=== PATIENT | female | born 1995 | race Caucasian/White ===

== ENCOUNTER → 2023-01-02 | Outpatient (CLI) | payer BC ==
[2023-01-02 10:48] LABS: Basophils # (auto) 0 10 ^3/uL (0-0.2); Basophils % (auto) 0.5 % (0.0-2.0); Eosinophils # (auto) 0.3 10 ^3/uL (0-0.8); Eosinophils % (auto) 3.7 % (0.0-7.0); Hematocrit 40.1 % (36.0-46.0); Hemoglobin 13.7 g/dL (12.2-16.2); Lymphocytes # (auto) 1.6 10 ^3/uL (0.4-5.4); Lymphocytes % (auto) 21.4 % (10.0-50.0); Mean Corpuscular Hemoglobin 28.6 pg (28.0-32.0); Mean Corpuscular Hgb Conc. 34.1 g/dL (32.0-36.0); Monocytes # (auto) 0.6 10 ^3/uL (0-1.3); Monocytes % (auto) 7.7 % (0.0-12.0); Neutrophils % (auto) 66.7 % (37.0-80.0); Red Blood Cells 4.77 10^6/uL (4.0-5.20); Red Cell Distribution Width 12.4 % (11.8-14.3); White Blood Cell 7.4 10^3/uL (4.4-10.8)
[2023-01-02 11:12] LABS: Urine Bacteria NONE SEEN /hpf (None Seen); Urine Blood Negative /uL (Negative); Urine Clarity Clear (Clear); Urine Color Yellow (Yellow); Urine Mucus FEW (None Seen); Urine Protein, UAD Negative (Negative); Urine Specific Gravity 1.028 (1.001-1.035); Urine Urobilinogen Normal (Negative); Urine WBC 1 /hpf (0 - 5); Urine pH 6.5 (5.0-8.0)
[2023-01-02 11:48] LABS: % Iron Saturation 20.9 % (15-50)
[2023-01-02 11:49] LABS: Albumin 4.7 g/dL (3.2-4.8); Alkaline Phosphatase 65 U/L (46-116); Anion Gap 5 (5-15); Aspartate Aminotransferase < 8 U/L (13-40); BUN/Creatinine Ratio 20.6 (10.0-20.0); Bilirubin, Total 0.6 mg/dL (0.2-1.0); Blood Urea Nitrogen 13 mg/dL (9-23); Calcium 9.4 mg/dL (8.5-10.1); Carbon Dioxide 29 mmol/L (20-30); Chloride 106 mmol/L (98-107); Cholesterol 157 mg/dL (< 200); Glucose 92 mg/dL (74-106); HDL Cholesterol 56 mg/dL (40-59); LDL Cholesterol 88 mg/dL (< 100); Potassium 4.3 mmol/L (3.5-5.1); Sodium 140 mmol/L (136-145); Total Protein 7.1 g/dL (5.7-8.2); Triglycerides 116 mg/dL (< 150)
[2023-01-02 11:56] LABS: Folate (Folic Acid) 21.57 ng/mL (>5.38)
[2023-01-02 12:10] LABS: Alanine Aminotransferase < 9 U/L (7-40)
[2023-01-02 12:30] LABS: Uric Acid 3.7 mg/dL (3.1-7.8)
== END | disposition home or self-care (01) ==
LOC: LAB 10:24
PROVIDERS: ATTEND Family Medicine
DX: Z00.00 Encounter for general adult medical examination without abnormal findings (principal); Z13.89 Encounter for screening for other disorder; F41.9 Anxiety disorder, unspecified; L65.9 Nonscarring hair loss, unspecified; R00.0 Tachycardia, unspecified; R45.0 Nervousness
CPT/HCPCS: 36415; 80053; 80061; 81001; 82607; 82746; 83036; 83540; 83550; 84403; 84443; 84550; 85025

== ENCOUNTER → 2023-01-24 | Outpatient (CLI) | payer BC ==
[2023-01-24 12:18] LABS: Free T3 3.75 pg/mL (2.3-4.2); Free T4 (Free Thyroxine) 1.14 ng/dL (0.89-1.76)
[2023-01-24 12:19] LABS: T3 Total 1.45 ng/mL (0.60-1.81)
[2023-01-25 07:07] LABS: RPR Non Reactive (Non Reactive)
== END | disposition home or self-care (01) ==
LOC: LAB 10:55
PROVIDERS: ATTEND Family Medicine
DX: Z20.2 Contact with and (suspected) exposure to infections with a predominantly sexual mode of transmission (principal); N89.8 Other specified noninflammatory disorders of vagina
CPT/HCPCS: 36415; 84439; 84443; 84480; 84481; 86376; 86592; 86703

== ENCOUNTER 2023-07-30 12:48 | Inpatient (IN) | payer BC, OTHER, MEDICAID ==
[~2023-07-30] VITALS: Ht 149.9 cm; Wt 57.0 kg
[2023-07-30 13:15] LABS: Basophils # (auto) 0 10 ^3/uL (0-0.2); Basophils % (auto) 0.3 % (0.0-2.0); Eosinophils # (auto) 0.1 10 ^3/uL (0-0.8); Eosinophils % (auto) 0.6 % (0.0-7.0); Hematocrit 39.1 % (36.0-46.0); Hemoglobin 13.3 g/dL (12.2-16.2); Lymphocytes # (auto) 1.3 10 ^3/uL (0.4-5.4); Lymphocytes % (auto) 15.5 % (10.0-50.0); Mean Corpuscular Hemoglobin 28.8 pg (28.0-32.0); Mean Corpuscular Hgb Conc. 33.9 g/dL (32.0-36.0); Mean Corpuscular Volume 84.9 fL (80.0-100.0); Monocytes # (auto) 0.3 10 ^3/uL (0-1.3); Monocytes % (auto) 4.3 % (0.0-12.0); Neutrophils # (auto) 6.4 10 ^3/uL (1.6-8.6); Neutrophils % (auto) 79.3 % (37.0-80.0); Red Cell Distribution Width 13.4 % (11.8-14.3); White Blood Cell 8.1 10^3/uL (4.4-10.8)
[2023-07-30 13:31] LABS: Alanine Aminotransferase 11 U/L (7-40); Alkaline Phosphatase 68 U/L (46-116); Anion Gap 3 (5-15); Aspartate Aminotransferase < 8 U/L (13-40); BUN/Creatinine Ratio 18.8 (10.0-20.0); Blood Urea Nitrogen 13 mg/dL (9-23); Calcium 9.7 mg/dL (8.7-10.4); Carbon Dioxide 29 mmol/L (20-30); Chloride 107 mmol/L (98-107); Glucose 113 mg/dL (74-106); Potassium 4.3 mmol/L (3.5-5.1); Sodium 139 mmol/L (136-145)
[2023-07-30 13:32] LABS: Albumin 4.6 g/dL (3.2-4.8); Bilirubin, Total 0.4 mg/dL (0.2-1.0); Total Protein 7.2 g/dL (5.7-8.2)
[2023-07-30] MEDS: ASPirin 325 MG TAB PO ONE (14:43)
[2023-07-30] MEDS: NITROGLYCERIN 0.4 MG SL TAB SL ONE (14:43)
[2023-07-30] MEDS: SODIUM CHLORIDE 0.9% 1,000 ML IV ONE (14:55)
[2023-07-30 14:56] VITALS: PULSE 74; RESP 18; O2SAT 95
[2023-07-30] MEDS ORDERED: CLOT1CRE51 VG (16:09)
[2023-07-30] MEDS ORDERED: FLUC200T50 PO (16:09)
[2023-07-30] MEDS ORDERED: NITROGLYCERIN 0.4 MG SL TAB SL PRN ×2 (16:15→16:30)
[2023-07-30] MEDS ORDERED: MORPHINE SULFATE INJ 2 MG/ml SYRG IV PRN ×2 (16:15→16:30)
[2023-07-30] MEDS ORDERED: ACETAMINOPHEN 325 MG TAB PO PRN (16:15)
[2023-07-30] MEDS ORDERED: SODIUM CHLORIDE 0.9% 1,000 ML IV SCH (16:15)
[2023-07-30 16:40] LABS: Triglycerides 55 mg/dL (< 150)
[2023-07-30 16:41] LABS: LDL Cholesterol 81 mg/dL (< 100)
[2023-07-30 16:42] LABS: Cholesterol 160 mg/dL (< 200); HDL Cholesterol 68 mg/dL (40-59)
[2023-07-30 19:19] LABS: Urine Bacteria None Seen /hpf (None Seen); Urine WBC None Seen /hpf (0 - 5)
[2023-07-30] MEDS: SODIUM CHLORIDE 0.9% 1,000 ML IV SCH (19:20)
[2023-07-30 19:26] LABS: Urine Blood Negative /uL (Negative); Urine Clarity Clear (Clear); Urine Color Colorless (Yellow); Urine Protein, UAD Negative (Negative); Urine Specific Gravity 1.014 (1.001-1.035); Urine Urobilinogen Normal (Negative); Urine pH 6.5 (5.0-9.0)
[2023-07-30 19:48] LABS: Amphetamine Screen, Urine Neg (NEGATIVE); Barbiturate Scree,Urine Neg (NEGATIVE); Benzodiazephine Screen, Urine Neg (NEGATIVE); Cocaine Screen, Urine Neg (NEGATIVE); Opiate Scree,Urine Neg (NEGATIVE)
[2023-07-30 19:49] LABS: Cannabinoid Screen, Urine Neg (NEGATIVE); Phencyclidine Screen, Urine Neg (NEGATIVE)
[2023-07-30] MEDS: ACETAMINOPHEN 325 MG TAB PO PRN (20:17)
[2023-07-30 20:45] VITALS: PULSE 97; RESP 16; O2SAT 100
[2023-07-30 22:26] VITALS: BP 108/75; PULSE 72; RESP 16; TEMP 97.7; O2SAT 97
[2023-07-31] VITALS (7 sets, daily range): BP systolic 105–121; BP diastolic 57–80; PULSE 72–88; RESP 16–22; TEMP 98.1–98.7; O2SAT 97–99
[2023-07-31] MEDS: SUMAtriptan SUCCINATE 25 MG TAB PO PRN (00:54)
[2023-07-31 06:39] LABS: Basophils # (auto) 0 10 ^3/uL (0-0.2); Basophils % (auto) 0.3 % (0.0-2.0); Eosinophils # (auto) 0.1 10 ^3/uL (0-0.8); Eosinophils % (auto) 0.9 % (0.0-7.0); Hematocrit 35.7 % (36.0-46.0); Hemoglobin 12.2 g/dL (12.2-16.2); Lymphocytes # (auto) 2.5 10 ^3/uL (0.4-5.4); Lymphocytes % (auto) 23.5 % (10.0-50.0); Mean Corpuscular Hemoglobin 28.9 pg (28.0-32.0); Mean Corpuscular Hgb Conc. 34.1 g/dL (32.0-36.0); Mean Corpuscular Volume 84.8 fL (80.0-100.0); Monocytes # (auto) 0.6 10 ^3/uL (0-1.3); Neutrophils # (auto) 7.4 10 ^3/uL (1.6-8.6); Neutrophils % (auto) 69.3 % (37.0-80.0); Red Blood Cells 4.21 10^6/uL (4.0-5.20); Red Cell Distribution Width 13.4 % (11.8-14.3); White Blood Cell 10.7 10^3/uL (4.4-10.8)
[2023-07-31 06:51] LABS: Albumin 3.7 g/dL (3.2-4.8); Alkaline Phosphatase 53 U/L (46-116); Anion Gap 4 (5-15); Aspartate Aminotransferase < 8 U/L (13-40); BUN/Creatinine Ratio 20.8 (10.0-20.0); Bilirubin, Total 0.6 mg/dL (0.2-1.0); Blood Urea Nitrogen 10 mg/dL (9-23); Calcium 8.5 mg/dL (8.5-10.1); Carbon Dioxide 26 mmol/L (20-30); Chloride 109 mmol/L (98-107); Glucose 91 mg/dL (74-106); Potassium 3.5 mmol/L (3.5-5.1); Sodium 139 mmol/L (136-145); Total Protein 5.7 g/dL (5.7-8.2)
[2023-07-31 07:04] LABS: Alanine Aminotransferase < 9 U/L (7-40)
[2023-07-31 08:56] LABS: Hepatitis B Surface Antigen Negative (Negative)
[2023-07-31 09:17] LABS: Hepatitis C Antibody Negative (Negative)
[2023-07-31] MEDS: ASPirin 81 mg TAB PO SCH (09:28)
[2023-07-31] MEDS ORDERED: ASPirin 81 mg TAB PO SCH (10:00)
[2023-07-31 10:50] LABS: Free T3 3.08 pg/mL (2.3-4.2); Free T4 (Free Thyroxine) 1.18 ng/dL (0.89-1.76)
== END 2023-07-31 17:49 | disposition home or self-care (01) | DRG 313 ==
LOC: ER 12:50 → TELE 16:08 → ER 16:08 → TELE-WESTW 22:21
PROVIDERS: ADMIT Internal Medicine; ATTEND Internal Medicine
DX: R07.89 Other chest pain (principal); E03.8 Other specified hypothyroidism; Z82.3 Family history of stroke
CPT/HCPCS: 36415; 70450; 71045; 80053; 80061; 80307; 81001; 81025; 84439; 84443; 84481; 84484; 85025; 85379; 86803; 87340; 93005; 93306; G0378

== ENCOUNTER → 2023-12-28 | Outpatient (CLI) | payer BC ==
[~2023-12-28] MED LIST: CLOT1CRE51 VG; FLUC200T50 PO
[2023-12-28 10:02] LABS: Urine Bacteria None Seen /hpf (None Seen)
[2023-12-28 10:14] LABS: Urine Blood Negative /uL (Negative); Urine Clarity Clear (Clear); Urine Color Light-Yellow (Yellow); Urine Mucus FEW (None Seen); Urine Protein, UAD Negative (Negative); Urine Specific Gravity 1.014 (1.001-1.035); Urine Urobilinogen Normal (Negative); Urine WBC <1 /hpf (0 - 5); Urine pH 6.5 (5.0-9.0)
[2023-12-28 10:20] LABS: Basophils # (auto) 0 10 ^3/uL (0-0.2); Basophils % (auto) 0.3 % (0.0-2.0); Eosinophils # (auto) 0.2 10 ^3/uL (0-0.8); Hematocrit 36.7 % (36.0-46.0); Hemoglobin 12.6 g/dL (12.2-16.2); Lymphocytes # (auto) 1.5 10 ^3/uL (0.4-5.4); Lymphocytes % (auto) 15.4 % (10.0-50.0); Mean Corpuscular Hemoglobin 29.1 pg (28.0-32.0); Mean Corpuscular Hgb Conc. 34.3 g/dL (32.0-36.0); Mean Corpuscular Volume 84.8 fL (80.0-100.0); Monocytes # (auto) 0.6 10 ^3/uL (0-1.3); Monocytes % (auto) 6.1 % (0.0-12.0); Neutrophils # (auto) 7.3 10 ^3/uL (1.6-8.6); Neutrophils % (auto) 76.2 % (37.0-80.0); Platelet Count (auto) 292 10^3/uL (140-450); Red Blood Cells 4.33 10^6/uL (4.0-5.20); Red Cell Distribution Width 13.3 % (11.8-14.3); White Blood Cell 9.5 10^3/uL (4.4-10.8)
[2023-12-28 11:55] LABS: Alanine Aminotransferase 15 U/L (7-40); Albumin 4.5 g/dL (3.2-4.8); Alkaline Phosphatase 57 U/L (46-116); Anion Gap 7 (5-15); Aspartate Aminotransferase < 8 U/L (13-40); BUN/Creatinine Ratio 14.6 (10.0-20.0); Blood Urea Nitrogen 6 mg/dL (9-23); Calcium 9.6 mg/dL (8.7-10.4); Carbon Dioxide 25 mmol/L (20-31); Chloride 104 mmol/L (98-107); Glucose 83 mg/dL (74-106); Potassium 3.8 mmol/L (3.5-5.1); Sodium 136 mmol/L (136-145); Uric Acid 2.2 mg/dL (3.1-7.8)
[2023-12-28 11:56] LABS: Bilirubin, Total 0.5 mg/dL (0.2-1.0); Folate (Folic Acid) 18.6 ng/mL (>5.38); Total Protein 7.1 g/dL (5.7-8.2)
[2023-12-28 11:57] LABS: % Iron Saturation 42.6 % (15-50)
[2023-12-28 13:23] LABS: Triglycerides 146 mg/dL (< 150)
[2023-12-28 13:24] LABS: LDL Cholesterol 97 mg/dL (< 100)
[2023-12-28 13:25] LABS: Cholesterol 193 mg/dL (< 200); HDL Cholesterol 80 mg/dL (40-59)
== END | disposition home or self-care (01) ==
LOC: LAB 09:42
PROVIDERS: ATTEND Family Medicine
DX: Z00.00 Encounter for general adult medical examination without abnormal findings (principal); E03.8 Other specified hypothyroidism; Z3A.11 11 weeks gestation of pregnancy
CPT/HCPCS: 36415; 80053; 80061; 81001; 82306; 82607; 82746; 83036; 83540; 83550; 84403; 84443; 84550; 85025

== ENCOUNTER → 2024-01-04 | Outpatient (CLI) | payer BC ==
[2024-01-04 11:50] LABS: Basophils # (auto) 0 10 ^3/uL (0-0.2); Basophils % (auto) 0.5 % (0.0-2.0); Eosinophils # (auto) 0.3 10 ^3/uL (0-0.8); Eosinophils % (auto) 2.8 % (0.0-7.0); Hematocrit 34.7 % (36.0-46.0); Hemoglobin 12.1 g/dL (12.2-16.2); Lymphocytes # (auto) 1.3 10 ^3/uL (0.4-5.4); Lymphocytes % (auto) 14.3 % (10.0-50.0); Mean Corpuscular Hemoglobin 29.7 pg (28.0-32.0); Mean Corpuscular Hgb Conc. 34.9 g/dL (32.0-36.0); Mean Corpuscular Volume 85.2 fL (80.0-100.0); Monocytes # (auto) 0.6 10 ^3/uL (0-1.3); Monocytes % (auto) 6.6 % (0.0-12.0); Neutrophils # (auto) 7.1 10 ^3/uL (1.6-8.6); Neutrophils % (auto) 75.8 % (37.0-80.0); Platelet Count (auto) 292 10^3/uL (140-450); Red Blood Cells 4.08 10^6/uL (4.0-5.20); Red Cell Distribution Width 13.2 % (11.8-14.3); White Blood Cell 9.4 10^3/uL (4.4-10.8)
[2024-01-04 12:35] LABS: Albumin 4.1 g/dL (3.2-4.8); Alkaline Phosphatase 53 U/L (46-116); Anion Gap 5 (5-15); Aspartate Aminotransferase 9 U/L (13-40); BUN/Creatinine Ratio 10.7 (10.0-20.0); Bilirubin, Total 0.3 mg/dL (0.2-1.0); Blood Urea Nitrogen 6 mg/dL (9-23); Calcium 9.3 mg/dL (8.7-10.4); Carbon Dioxide 26 mmol/L (20-31); Chloride 106 mmol/L (98-107); Glucose 85 mg/dL (74-106); Sodium 137 mmol/L (136-145); Total Protein 6.6 g/dL (5.7-8.2)
[2024-01-04 12:39] LABS: Alanine Aminotransferase 9 U/L (7-40)
[2024-01-04 13:07] LABS: Beta HCG, Quantitative 0.9 mIU/mL (1.5-4.2); Thyroid Stimulating Hormone 0.21 uIU/mL (0.55-4.78)
[2024-01-04 14:12] LABS: Amphetamine Screen, Urine Neg (NEGATIVE); Barbiturate Scree,Urine Neg (NEGATIVE); Benzodiazephine Screen, Urine Neg (NEGATIVE); Cocaine Screen, Urine Neg (NEGATIVE); Opiate Scree,Urine Neg (NEGATIVE); Phencyclidine Screen, Urine Neg (NEGATIVE)
[2024-01-04 14:13] LABS: Cannabinoid Screen, Urine Neg (NEGATIVE)
[2024-01-05 07:06] LABS: RPR Non Reactive (Non Reactive); Varicella Zoster IgG Antibody Reactive (Non Reactive)
[2024-01-05 11:06] LABS: Thyroxine (T4) 15.2 ug/dL (4.5-12.0)
== END | disposition home or self-care (01) ==
LOC: LAB 10:51
PROVIDERS: ATTEND Obstetrics & Gynecology
DX: Z34.80 Encounter for supervision of other normal pregnancy, unspecified trimester (principal); Z31.430 Encounter of female for testing for genetic disease carrier status for procreative management; Z36.0 Encounter for antenatal screening for chromosomal anomalies; N39.0 Urinary tract infection, site not specified; Z3A.00 Weeks of gestation of pregnancy not specified
CPT/HCPCS: 36415; 80053; 80307; 83036; 84436; 84443; 84702; 85025; 86592; 86703; 86762; 86787; 86850; 86900; 86901; 87086; 87340; 87902

== ENCOUNTER → 2024-04-22 | Outpatient (CLI) | payer BC, MEDICAID ==
[2024-04-22 10:30] LABS: Basophils # (auto) 0 10 ^3/uL (0-0.2); Basophils % (auto) 0.1 % (0.0-2.0); Eosinophils # (auto) 0.1 10 ^3/uL (0-0.8); Eosinophils % (auto) 1.2 % (0.0-7.0); Hematocrit 34.3 % (36.0-46.0); Hemoglobin 11.8 g/dL (12.2-16.2); Lymphocytes # (auto) 1.3 10 ^3/uL (0.4-5.4); Mean Corpuscular Hemoglobin 29.4 pg (28.0-32.0); Mean Corpuscular Hgb Conc. 34.3 g/dL (32.0-36.0); Monocytes # (auto) 0.7 10 ^3/uL (0-1.3); Monocytes % (auto) 7.5 % (0.0-12.0); Neutrophils # (auto) 6.6 10 ^3/uL (1.6-8.6); Neutrophils % (auto) 76.2 % (37.0-80.0); Platelet Count (auto) 258 10^3/uL (140-450); Red Blood Cells 3.99 10^6/uL (4.0-5.20); Red Cell Distribution Width 13.7 % (11.8-14.3); White Blood Cell 8.7 10^3/uL (4.4-10.8)
[2024-04-22 10:59] LABS: Alanine Aminotransferase 16 U/L (7-40); Albumin 4.1 g/dL (3.2-4.8); Alkaline Phosphatase 89 U/L (46-116); Anion Gap 8 (5-15); Bilirubin, Total 0.4 mg/dL (0.2-1.0); Calcium 9.3 mg/dL (8.7-10.4); Carbon Dioxide 25 mmol/L (20-31); Chloride 104 mmol/L (98-107); Glucose 88 mg/dL (74-106); Potassium 3.9 mmol/L (3.5-5.1); Sodium 137 mmol/L (136-145); Total Protein 6.3 g/dL (5.7-8.2)
[2024-04-22 11:07] LABS: Aspartate Aminotransferase 8 U/L (13-40); BUN/Creatinine Ratio 12.2 (10.0-20.0); Blood Urea Nitrogen < 5 mg/dL (9-23)
[2024-04-23 08:07] LABS: RPR Non Reactive (Non Reactive)
[2024-04-23 23:07] LABS: Chlamydia Trachomatis, NAA Negative (Negative); Neisseria gonorrhoeae, NAA Negative (Negative)
== END | disposition home or self-care (01) ==
LOC: LAB 09:46
DX: Z34.00 Encounter for supervision of normal first pregnancy, unspecified trimester (principal); Z3A.00 Weeks of gestation of pregnancy not specified
CPT/HCPCS: 36415; 80053; 82951; 83036; 84439; 84443; 85025; 86592; 86850; 86900; 86901

== ENCOUNTER 2024-05-22 10:15 | Observation (INO) | payer BC, MEDICAID ==
--- NOTE | 2024-05-22 11:23 | DVH ---
BIOPHYSICAL PROFILE HISTORY: GDMA2 Comparison Study: None TECHNIQUE: Multiple real-time grayscale sonographic images through the gravid uterus of the fetus wi th duplex Doppler color flow and M-mode spectral analysis FINDINGS: BIOPHYSICAL PROFILE: breathing score: 2 movement score: 2 tone score: 2 Quantitative STEPHEN score: 2 (STEPHEN: 20.2 Cm.) Total score: 8 The cervix is not visualized. Single live fetus in cephalic presentation. heart rate 152 beats per minute. Posterior placenta without previa or abruption IMPRESSION: Biophysical profile score: 8 Abnormal appearing cystic structure with internal debris or echoes is present in the region of the fe mulu right ovary. Close clinical and sonographic follow-up advised.
[2024-05-22] MEDS ORDERED: PREN-129 OR (11:45)
--- NOTE | 2024-05-22 21:05 | DVHDS2 ---
Physician Discharge Progress N Final Diagnosis: testing for GDM, A2 Operations or Procedures: Operations or Procedures 29yo IUP@32.3wks VSS NST reactive FKC/PTL precautions reviewed Condition on Discharge: Stable Disposition: Home Discharge Instructions: Diet: Consistent carbohydrate Activity: No Restrictions, As Tolerated Medications: see med list Follow Up Care: Specialist: f/u in 3 days Discharge Statement: "Patient was advised to return to the ER or call 911 if any headaches, dizz iness, shortness of breath, chest pain, abdominal pain, bleeding, fevers, or worsening of medical condition. Patient was counseled about treatment plan, medications, possible side effects, patientverbalized understanding. All questions were answered to the best of my ability. This discharge took greater then 30 minutes in planning, reviewing documentation, counseling the patient, and discussing with other team members." Visit Coding OBGYN Date of Service: May 22, 2024 Billing Provider: JAY STEWART CNM STATISTICAL MACHINE MECHANIC Common Visit Codes: [id number] OBS CARE (HIGH) STATISTICAL MACHINE MECHANIC Procedure Codes: 32817-45- NON-STRESS TEST JAY STEWART CNM May 22, 2024 21:05
== END 2024-05-22 11:53 | disposition home or self-care (01) ==
LOC: LDRP 10:15
PROVIDERS: ADMIT Obstetrics & Gynecology; ATTEND Obstetrics & Gynecology
DX: O24.415 Gestational diabetes mellitus in pregnancy, controlled by oral hypoglycemic drugs (principal); Z3A.32 32 weeks gestation of pregnancy; Z79.84 Long term (current) use of oral hypoglycemic drugs; Z98.890 Other specified postprocedural states; Z79.899 Other long term (current) drug therapy
CPT/HCPCS: 76819; 81002; 82948; 82962; 94760; G0378

== ENCOUNTER 2024-05-25 08:02 | Observation (INO) | payer BC, MEDICAID ==
[~2024-05-25 08:02] MED LIST changes: +PREN-129 OR
--- NOTE | 2024-05-25 09:33 | DVH ---
Procedure: US BIOPHYSICAL PROFILE 05/25/2024 08:43 AM Indication: GDMA2 Comparison: US BIOPHYSICAL PROFILE on DOS: 05/22/24 Technique: Sonogram of gravid uterus utilizing grayscale and color techniques. FINDINGS: Single living intrauterine gestation. Presentation: Cephalic Placenta: Posterior heart rate: 152 bpm STEPHEN: 19.6 cm, DVP: 5.9 cm Maternal cervix: Not visualized Other: Redemonstration of a 3 x 3.1 x 3.3 cm complex cyst containing debris in the right pelvis . Biophysical Profile: breathing score: 2 movement score: 2 tone: 2 Quantitative STEPHEN score: 2 Total score: 8/8 IMPRESSION: 1. Single living as above. 2. Biophysical profile score: 8/8. 3. Redemonstration of a 3.3 cm complex right pelvis cystic lesion.
--- NOTE | 2024-05-25 11:50 | DVHDS2 ---
Physician Discharge Progress N Final Diagnosis: gdm Operations or Procedures: Operations or Procedures nst,sono Condition on Discharge: Good Disposition: Home Discharge Instructions: Diet: Regular, Consistent carbohydrate Activity: No Restrictions, As Tolerated Medications: na Follow Up Care: Specialist: 2d Discharge Statement: "Patient was advised to return to the ER or call 911 if any headaches, dizziness, shortness of breath, chest pain, abdominal pain, bleeding, fevers, or worsening of medical condition. Patient was counseled about treatment plan, medications, possible side effects, patientverbalized understanding. All questions were answered to the best of my ability. This discharge took greater then 30 minutes in planning, reviewing document ation, counseling the patient, and discussing with other team members." Visit Coding OBGYN Date of Service: May 24, 2024 Billing Provider: LISA HARRIS DO AIRPLANE GAS TANK LINER ASSEMBLER Common Visit Codes: [id number] INP/OBS CARE(HIGH) AIRPLANE GAS TANK LINER ASSEMBLER Procedure Codes: 57038-25- NON-STRESS TEST LISA HARRIS DO May 25, 2024 11:50
== END 2024-05-25 09:56 | disposition home or self-care (01) ==
LOC: LDRP 08:02
PROVIDERS: ADMIT Obstetrics & Gynecology; ATTEND Obstetrics & Gynecology
DX: O24.419 Gestational diabetes mellitus in pregnancy, unspecified control (principal); Z3A.32 32 weeks gestation of pregnancy; Z79.899 Other long term (current) drug therapy
CPT/HCPCS: 76819; 82962; G0378; 81002; 94760

== ENCOUNTER 2024-05-29 07:46 | Observation (INO) | payer BC, MEDICAID ==
[~2024-05-29] VITALS: Ht 152.4 cm; Wt 68.0 kg
--- NOTE | 2024-05-29 09:12 | DVHDS2 ---
Physician Discharge Progress N Final Diagnosis: gdm 33wks Operations or Procedures: Operations or Procedures nst,sono Condition on Discharge: Good Disposition: Home Discharge Instructions: Diet: Consistent carbohydrate Activity: No Restrictions, As Tolerated Medications: na Follow Up Care: Specialist: 1w Discharge Statement: "Patient was advised to return to the ER or call 911 if any headaches, dizziness, shortness of breath, chest pain, abdominal pain, bleeding, fevers, or worsening of medical condition. Patient was counseled about treatment plan, medications, possible side effects, patientverbalized understanding. All questions were answered to the best of my ability. This discharge took greater then 30 minutes in planning, reviewing documentati on, counseling the patient, and discussing with other team members." Visit Coding OBGYN Date of Service: May 29, 2024 Billing Provider: LISA HARRIS DO AGRONOMY RESEARCH MANAGER Common Visit Codes: 22893-[id number] INP/OBS CARE (HIGH) AGRONOMY RESEARCH MANAGER Procedure Codes: 52052-34- NON-STRESS TEST LSIA HARRIS DO May 29, 2024 09:12
--- NOTE | 2024-05-29 09:27 | DVH ---
Procedure: US BIOPHYSICAL PROFILE 05/29/2024 08:10 AM Indication: GDMA1 Comparison: US BIOPHYSICAL PROFILE on DOS: 05/25/24, US BIOPHYSICAL PROFILE on DOS: 05/22/24 Technique: Sonogram of gravid uterus utilizing grayscale and color techniques. FINDINGS: Single living intrauterine gestation. Presentation: Cephalic Placenta: Posterior, grade 2 heart rate: 141 bpm STEPHEN: 24.1 cm, DVP: 7.4 cm, STEPHEN was measured twice Maternal cervix: Not visualized Other: Possible nuchal cord X1, redemonstration of 2.4 x 2.1 x 3 cm complex cystic structure in the r egion of the right pelvis. Biophysical Profile: breathing score: 2 movement score: 2 tone: 2 Quantitative STEPHEN score: 2 Total score: 8/8 IMPRESSION: 1. Single living as above. 2. Biophysical profile score: 8/8. 3. Borderline polyhydramnios with STEPHEN of 24.1 cm. 4. Possible nuchal cord X1. 5. Redemonstration of 2.4 x 2.1 x 3 cm complex cystic structure in the region of the right pelv is.
== END 2024-05-29 09:18 | disposition home or self-care (01) ==
LOC: LDRP 07:46
PROVIDERS: ADMIT Obstetrics & Gynecology; ATTEND Obstetrics & Gynecology
DX: O24.419 Gestational diabetes mellitus in pregnancy, unspecified control (principal); Z3A.33 33 weeks gestation of pregnancy; Z79.899 Other long term (current) drug therapy
CPT/HCPCS: 76819; 81002; 82962; 94760; G0378

== ENCOUNTER 2024-06-01 09:23 | Observation (INO) | payer BC, MEDICAID ==
[~2024-06-01] VITALS: Ht 149.9 cm; Wt 56.7 kg
[2024-06-01 11:44] LABS: Urine Bacteria None Seen /hpf (None Seen)
[2024-06-01 11:51] LABS: Urine Blood Negative /uL (Negative); Urine Clarity Clear (Clear); Urine Color Light-Yellow (Yellow); Urine Protein, UAD Negative (Negative); Urine Specific Gravity 1.014 (1.001-1.035); Urine Squamous Epithelial Cell FEW /hpf (<5); Urine Urobilinogen Normal (Negative); Urine WBC 1 /HPF (0-5)
--- NOTE | 2024-06-01 11:56 | DVH ---
BIOPHYSICAL PROFILE HISTORY: GDMA2 TECHNIQUE: Multiple transabdominal real-time grayscale sonographic images through the gravid uterus o f the fetus with duplex doppler color flow and M-mode spectral analysis FINDINGS: BIOPHYSICAL PROFILE: breathing score: 2 movement score: 2 tone score: 2 Quantitative STEPHEN score: 2 (STEPHEN: 20.1 cm.) Total score: 8/8 The cervix 3.15 cm and closed Single live fetus in cephalic presentation. heart rate 144 beats per minute. Posterior placenta without previa or abruption Umbilical cord seen across the cervix with a nuchal cord x 1. Biophysical profile score 8/8 corresponding to an SHASHANK of 07/14/24 IMPRESSION: Biophysical profile score: 8/8 Umbilical cord seen across the cervix with a nuchal cord x 1.
[2024-06-01 12:26] LABS: Fern Testing Negative
[2024-06-01] MEDS: NIFEdipine 10 MG CAP PO ONE (12:29)
[2024-06-01] MEDS ORDERED: NIFE10CA52 PO (13:28)
--- NOTE | 2024-06-01 15:43 | DVHDS2 ---
Physician Discharge Progress N Final Diagnosis: gdm,ptl,33 wks Operations or Procedures: Operations or Procedures nst,sono Condition on Discharge: Good Disposition: Home Discharge Instructions: Diet: Consistent carbohydrate Activity: See Comment Activity comment: pelvic rest Medications: na Follow Up Care: Specialist: 3d Discharge Statement: "Patient was advised to return to the ER or call 911 if any headaches, dizziness, shortness of breath, chest pain, abdominal pain, bleeding, fevers, or worsening of medical condition. Patient was counseled about treatment plan, medications, possible side effects, patientverbalized understanding. All questions were answered to the best of my ability. This discharge took greater then 30 minutes in planning, reviewing documentation, counseling the patient, and discussing with other team members." Visit Coding OBGYN Date of Service: Jun 01, 2024 Billing Provider: LISA HARRIS DO LOGGING CREW SUPERVISOR Common Visit Codes: [id number] INP/OBS CARE (HIGH), 27688-[id number] INP/OBS CARE(HIGH) LOGGING CREW SUPERVISOR Procedure Codes: 13988-37- NON-STRESS TEST LISA HARRIS DO Jun 01, 2024 15:43
== END 2024-06-01 13:38 | disposition home or self-care (01) ==
LOC: LDRP 10:40
PROVIDERS: ADMIT Obstetrics & Gynecology; ATTEND Obstetrics & Gynecology
DX: O60.03 Preterm labor without delivery, third trimester (principal); O24.419 Gestational diabetes mellitus in pregnancy, unspecified control; Z3A.33 33 weeks gestation of pregnancy; Z79.899 Other long term (current) drug therapy; Z98.890 Other specified postprocedural states
CPT/HCPCS: 76818; 81001; 81002; 82948; 82962; 84112; 94760; G0378; Q0114; 76819

== ENCOUNTER 2024-06-05 15:15 | Observation (INO) | payer BC, MEDICAID ==
[~2024-06-05 15:15] MED LIST changes: +NIFE10CA52 PO
--- NOTE | 2024-06-06 11:58 | DVH ---
BIOPHYSICAL PROFILE HISTORY: nuchal, lowlying cord Comparison Study: 06/01/2024 TECHNIQUE: Multiple real-time grayscale sonographic images through the gravid uterus of the fetus wi th duplex Doppler color flow and M-mode spectral analysis FINDINGS: BIOPHYSICAL PROFILE: breathing score: 2 movement score: 2 tone score: 2 Quantitative STEPHEN score: 2 (STEPHEN: 20.4 Cm.) Total score: 8 The cervix is not visualized Single live fetus in cephalic presentation. heart rate 142 beats per minute. Posterior placenta without previa or abruption No nuchal cord seen. IMPRESSION: Biophysical profile score: 8/8 No nuchal cord is seen at this time.
[2024-06-06] MEDS ORDERED: INSU100S6 SC (12:10)
--- NOTE | 2024-06-06 12:29 | DVHDS2 ---
Physician Discharge Progress N Final Diagnosis: [id number] Operations or Procedures: Operations or Procedures nst,sono Condition on Discharge: Good Disposition: Home Discharge Instructions: Diet: Consistent carbohydrate Activity: See Comment Activity comment: pelvic rest Medications: na Follow Up Care: Specialist: 3d Discharge Statement: "Patient was advised to return to the ER or call 911 if any headaches, dizziness, shortness of breath, chest pain, abdominal pain, bleeding, fevers, or worsening of medical condition. Patient was counseled about treatment plan, medications, possible side effects, patientverbalized understanding. All questions were answered to the best of my ability. This discharge took greater then 30 minutes in planning, reviewing documentation, counseling the patient, and discussing with other team members." Visit Coding OBGYN Date of Service: Jun 06, 2024 Billing Provider: LISA HARRIS DO JIG AND FIXTURE BUILDER Common Visit Codes: [id number]-UXOYUKT OBS CARE (HIGH) JIG AND FIXTURE BUILDER Procedure Codes: 54529-29- NON-STRESS TEST LISA HARRIS DO Jun 06, 2024 12:29
== END 2024-06-06 12:16 | disposition home or self-care (01) ==
LOC: LDRP 06-06 10:57 → UNDOADMOB 06-06 10:57 → LDRP 06-06 11:08
PROVIDERS: ADMIT Obstetrics & Gynecology; ATTEND Obstetrics & Gynecology
DX: O24.419 Gestational diabetes mellitus in pregnancy, unspecified control (principal); O60.03 Preterm labor without delivery, third trimester; O69.81X0 Labor and delivery complicated by cord around neck, without compression, not applicable or unspecified; Z3A.35 35 weeks gestation of pregnancy; Z79.899 Other long term (current) drug therapy
CPT/HCPCS: 76818; 81002; 82948; 82962; 94760; G0378; 76819

== ENCOUNTER 2024-06-08 12:13 | Observation (INO) | payer BC, MEDICAID ==
[~2024-06-08 12:13] MED LIST changes: +INSU100S6 SC
--- NOTE | 2024-06-08 13:13 | DVH ---
BIOPHYSICAL PROFILE HISTORY: GDMA2, PTL TECHNIQUE: Multiple transabdominal real-time grayscale sonographic images through the gravid uterus of the fetus with duplex Doppler color flow and M-mode spectral analysis FINDINGS: BIOPHYSICAL PROFILE: breathing score: 2 movement score: 2 tone score: 2 Quantitative STEPHEN score: 2 (STEPHEN: 19.5 Cm.) Total score: 8/8 The cervix measures 3.7 cm in length. Cervical os is closed. Single live fetus in cephalic presentation. heart rate 163 beats per minute. Posterior placenta without previa or abruption. No nuchal cord identified. IMPRESSION: 1. Biophysical profile score: 8/8.
--- NOTE | 2024-06-11 12:39 | DVHDS2 ---
Physician Discharge Progress N Final Diagnosis: gdm,ptl 34wks Secondary Diagnosis: ptl,gdm Operations or Procedures: Operations or Procedures nst,sono Condition on Discharge: Good Disposition: Home Discharge Instructions: Diet: Consistent carbohydrate Activity: No Restrictions, As Tolerated Medications: na Follow Up Care: Specialist: 1w Discharge Statement: "Patient was advised to return to the ER or call 911 if any headaches, dizziness, shortness of breath, chest pain, abdominal pain, bleeding, fevers, or worsening of medical condition. Patient was counseled about treatment plan, medications, possible side effects, patient�verbalized understanding. All questions were answered to the best of my ability. This discharge took greater then 30 minutes in planning, reviewing documentation, counseling the patient, and discussing with other team members." Visit Coding OBGYN Date of Service: Jun 11, 2024 Billing Provider: LISA HARRIS DO HEAD CUSTODIAN Common Visit Codes: [id number] INP/OBS CARE (HIGH) HEAD CUSTODIAN Procedure Codes: 99399-34- NON-STRESS TEST LISA HARRIS DO Jun 11, 2024 12:39
== END 2024-06-08 15:25 | disposition home or self-care (01) ==
LOC: LDRP 12:13
PROVIDERS: ADMIT Obstetrics & Gynecology; ATTEND Obstetrics & Gynecology
DX: O24.419 Gestational diabetes mellitus in pregnancy, unspecified control (principal); O60.03 Preterm labor without delivery, third trimester; Z3A.34 34 weeks gestation of pregnancy; Z79.899 Other long term (current) drug therapy
CPT/HCPCS: 76817; 76818; 81002; 82948; 82962; 94760; G0378; 76819

== ENCOUNTER → 2024-06-11 | Outpatient (CLI) | payer BC, MEDICAID ==
[2024-06-11 14:14] LABS: Basophils # (auto) 0 10 ^3/uL (0-0.2); Basophils % (auto) 0.5 % (0.0-2.0); Eosinophils # (auto) 0.3 10 ^3/uL (0-0.8); Eosinophils % (auto) 3.8 % (0.0-7.0); Hematocrit 31.1 % (36.0-46.0); Lymphocytes # (auto) 1.3 10 ^3/uL (0.4-5.4); Lymphocytes % (auto) 15.1 % (10.0-50.0); Mean Corpuscular Hemoglobin 29.7 pg (28.0-32.0); Mean Corpuscular Hgb Conc. 35.2 g/dL (32.0-36.0); Mean Corpuscular Volume 84.3 fL (80.0-100.0); Monocytes # (auto) 0.9 10 ^3/uL (0-1.3); Neutrophils # (auto) 6.1 10 ^3/uL (1.6-8.6); Neutrophils % (auto) 70.6 % (37.0-80.0); Platelet Count (auto) 260 10^3/uL (140-450); Red Blood Cells 3.69 10^6/uL (4.0-5.20); Red Cell Distribution Width 13.3 % (11.8-14.3); White Blood Cell 8.6 10^3/uL (4.4-10.8)
[2024-06-12 13:07] LABS: Chlamydia Trachomatis, NAA Negative (Negative); Neisseria gonorrhoeae, NAA Negative (Negative)
== END | disposition home or self-care (01) ==
LOC: LAB 13:44
PROVIDERS: ATTEND Obstetrics & Gynecology
DX: Z34.80 Encounter for supervision of other normal pregnancy, unspecified trimester (principal); Z72.51 High risk heterosexual behavior; Z3A.00 Weeks of gestation of pregnancy not specified
CPT/HCPCS: 36415; 85025; 86780

== ENCOUNTER 2024-06-12 10:09 | Observation (INO) | payer BC, MEDICAID ==
--- NOTE | 2024-06-12 11:27 | DVH ---
BIOPHYSICAL PROFILE HISTORY: gdma1 PTL TECHNIQUE: Multiple transabdominal real-time grayscale sonographic images through the gravid uterus of the fetus with duplex Doppler color flow and M-mode spectral analysis FINDINGS: BIOPHYSICAL PROFILE: breathing score: 2 movement score: 2 tone score: 2 Quantitative STEPHEN score: 2 (STEPHEN: 19.7 Cm.) Total score: 8/8 The cervix 3.1 cm in length. Single live fetus in cephalic presentation. heart rate 38 beats per minute. Grade 2 posterior placenta without previa or abruption IMPRESSION: 1. Biophysical profile score: 8/8
--- NOTE | 2024-06-12 13:59 | DVHDS2 ---
Physician Discharge Progress N Final Diagnosis: gdm,ptl 35wks Operations or Procedures: Operations or Procedures nst,sono Condition on Discharge: Good Disposition: Home Discharge Instructions: Diet: Regular, Consistent carbohydrate Activity: No Restrictions, As Tolerated Medications: na Follow Up Care: Specialist: 1w Discharge Statement: "Patient was advised to return to the ER or call 911 if any headaches, dizziness, shortness of breath, chest pain, abdominal pain, bleeding, fevers, or worsening of medical condition. Patient was counseled about treatment plan, medications, possible side effects, patientverbalized understanding. All questions were answered to the best of my ability. This discharge took greater then 30 minutes in planning, reviewing documentation, counseling the patient, and discussing with other team members." Visit Coding OBGYN Date of Service: Jun 12, 2024 Billing Provider: LISA HARRIS DO LITHOGRAPHIC PRESS OPERATOR APPRENTICE Common Visit Codes: 72761-[id number] INP/OBS CARE (HIGH) LITHOGRAPHIC PRESS OPERATOR APPRENTICE Procedure Codes: 81850-93- NON-STRESS TEST LISA HARRIS DO Jun 12, 2024 13:59
--- NOTE | 2024-06-12 15:52 | DVH ---
BIOPHYSICAL PROFILE HISTORY: gdma1 PTL TECHNIQUE: Multiple transabdominal real-time grayscale sonographic images through the gravid uterus of the fetus with duplex Doppler color flow and M-mode spectral analysis FINDINGS: BIOPHYSICAL PROFILE: breathing score: 2 movement score: 2 tone score: 2 Quantitative STEPHEN score: 2 (STEPHEN: 19.7 Cm.) Total score: 8/8 The cervix 3.1 cm in length. Single live fetus in cephalic presentation. heart rate 38 beats per minute. Grade 2 posterior placenta without previa or abruption IMPRESSION: 1. Biophysical profile score: 8/8 IA RANDLE
== END 2024-06-12 12:00 | disposition home or self-care (01) ==
LOC: UNDOADMOB 10:09 → LDRP 10:09 → UNDODISOB 12:00
PROVIDERS: ADMIT Obstetrics & Gynecology; ATTEND Obstetrics & Gynecology
DX: O60.03 Preterm labor without delivery, third trimester (principal); O24.414 Gestational diabetes mellitus in pregnancy, insulin controlled; Z3A.35 35 weeks gestation of pregnancy; Z79.4 Long term (current) use of insulin
CPT/HCPCS: 76817; 76818; 81002; 82948; 82962; 94762; G0378; 76819

== ENCOUNTER 2024-06-15 07:55 | Observation (INO) | payer BC, MEDICAID ==
--- NOTE | 2024-06-15 08:08 | DVHDS2 ---
Physician Discharge Progress N Final Diagnosis: gdm 37wks Operations or Procedures: Operations or Procedures nst,sono Condition on Discharge: Good Disposition: Home Discharge Instructions: Diet: Consistent carbohydrate Activity: No Restrictions, As Tolerated Medications: na Follow Up Care: Specialist: 4d Discharge Statement: "Patient was advised to return to the ER or call 911 if any headaches, dizziness, shortness of breath, chest pain, abdominal pain, bleeding, fevers, or worsening of medical condition. Patient was counseled about treatment plan, medications, possible side effects, patientverbalized understanding. All questions were answered to the best of my ability. This discharge took greater then 30 minutes in planning, reviewing documentati on, counseling the patient, and discussing with other team members." Visit Coding OBGYN Date of Service: Jun 15, 2024 Billing Provider: LISA HARRIS DO DENTAL CREAM MAKER Common Visit Codes: 50404-BPHFFFV INP/OBS CARE (HIGH) DENTAL CREAM MAKER Procedure Codes: 36853-50- NON-STRESS TEST LISA HARRIS DO Jun 15, 2024 08:08
--- NOTE | 2024-06-15 09:05 | DVH ---
CLINICAL HISTORY: Gestational diabetes. labor. COMPARISON: US BIOPHYSICAL PROFILE on DOS: 06/12/24, US BIOPHYSICAL PROFILE on DOS: 06/08/24, US BIOPHY SICAL PROFILE on DOS: 06/06/24 TECHNIQUE: biophysical profile was performed. Transabdominal sonographic images of the fetus we re obtained. FINDINGS: The fetus is in cephalic position. heart rate measures 130 BPM. Amniotic fluid index measures 27 cm. The placenta is posterior in position with no evidence of previa or abruption. Cervix appears closed on limited transabdominal imaging. Cervical length was measured as 3.15 cm. BPP profile is an overall score of 8/8, with 2/2 points for breathing, with at least one episode of breathing over a 30 second duration during a 30 minute observation, 2/2 points for m ovements, with 3 or more discrete body or limb movements, 2/2 points for tone, with one or more episodes of extremity extension with return to flexion, or opening and closing of hand, and 2/ 2 points for amniotic fluid, with at least 1 pocket of amniotic fluid that measures 2 cm in 2 perpend icular planes. IMPRESSION: 1. BPP score of 8/8. 2. Polyhydramnios. STEPHEN measures 27 cm. 3. Cervix appears grossly closed on transabdominal imaging. Cervical length was measured as 3.15 cm.
== END 2024-06-15 09:33 | disposition home or self-care (01) ==
LOC: LDRP 07:55
PROVIDERS: ADMIT Obstetrics & Gynecology; ATTEND Obstetrics & Gynecology
DX: O24.419 Gestational diabetes mellitus in pregnancy, unspecified control (principal); Z3A.37 37 weeks gestation of pregnancy; Z79.899 Other long term (current) drug therapy
CPT/HCPCS: 76818; 81002; 82948; 82962; 94760; G0378; 76819

== ENCOUNTER 2024-06-20 16:54 | Observation (INO) | payer BC, MEDICAID ==
--- NOTE | 2024-06-20 17:58 | DVH ---
OB ULTRASOUND, LIMITED CLINICAL INDICATION: GDMA2, PTL, Poly TECHNIQUE: Multiple grayscale ultrasound and M-mode images were obtained of the pelvis for evaluation of intrauterine . COMPARISON: US BIOPHYSICAL PROFILE on DOS: 06/15/24, US BIOPHYSICAL PROFILE on DOS: 06/12/24, US BIOPHY SICAL PROFILE on DOS: 06/08/24 FINDINGS: A single living fetus is seen in cephalic presentation. Biophysical profile: 10/04 breathin movements: 2 tone: 2 Amniotic fluid: 2 Placenta: Posterior/fundal. No evidence of placenta previa or abruption. Amniotic fluid: Visibly normal. STEPHEN 21.3 cm. heart rate: 124 beats/min. A complete anatomic survey was not performed on this exam. IMPRESSION: Biophysical profile 10/04
--- NOTE | 2024-06-20 18:26 | DVHDS2 ---
Physician Discharge Progress N Final Diagnosis: gdm Operations or Procedures: Operations or Procedures nst,sono Condition on Discharge: Good Disposition: Home Discharge Instructions: Diet: Consistent carbohydrate Activity: No Restrictions, As Tolerated Medications: na Follow Up Care: Specialist: 3d Discharge Statement: "Patient was advised to return to the ER or call 911 if any headaches, dizziness, shortness of breath, chest pain, abdominal pain, bleeding, fevers, or worsening of medical condition. Patient was counseled about treatment plan, medications, possible side effects, patientverbalized understanding. All questions were answered to the best of my ability. This discharge took greater then 30 minutes in planning, reviewing documentation, counseling the patient, and discussing with other team members." Visit Coding OBGYN Date of Service: Jun 20, 2024 Billing Provider: LISA HARRIS DO SECURITY SYSTEMS INTEGRATOR Common Visit Codes: 92708-XBP/OBS SAME DATE (LOW), 28188-CMZ/OBS SAME DATE (HIGH) SECURITY SYSTEMS INTEGRATOR Procedure Codes: [id number] LAPROSCOPIC, 32734-WNQ.SURG:W/REM ADNEXAL STRUCT LISA HARRSI DO Jun 20, 2024 18:26
== END 2024-06-20 18:32 | disposition home or self-care (01) ==
LOC: LDRP 16:54
PROVIDERS: ADMIT Obstetrics & Gynecology; ATTEND Obstetrics & Gynecology
DX: O24.419 Gestational diabetes mellitus in pregnancy, unspecified control (principal); O60.03 Preterm labor without delivery, third trimester; Z3A.36 36 weeks gestation of pregnancy; Z79.899 Other long term (current) drug therapy; Z98.890 Other specified postprocedural states
CPT/HCPCS: 76818; 81002; 82948; 82962; 94760; G0378; 76819

== ENCOUNTER 2024-06-23 02:47 | Observation (INO) | payer BC, MEDICAID ==
[~2024-06-23] VITALS: Ht 149.9 cm; Wt 69.4 kg
[2024-06-23 03:45] LABS: Fern Testing Negative
--- NOTE | 2024-06-23 06:58 | DVHDS2 ---
Physician Discharge Progress N Final Diagnosis: Suspected PROM ruled out Secondary Diagnosis: GDMA2, Polyhydramnios Operations or Procedures: Operations or Procedures NST, reactive categ 1 tracing Exam and testing for PROM, negative results , membranes are INTACT Condition on Discharge: Stable Disposition: Home Discharge Instructions: Diet: Consistent carbohydrate Activity: No Restrictions, As Tolerated Follow Up/Referral: As scheduled Medications: NA Follow Up Care: Discharge Statement: "Patient was advised to return to the ER or call 911 if any headaches, dizziness, shortness of breath, chest pain, abdominal pain, bleeding, fevers, or worsening of medical condition. Patient was counseled about treatment plan, medications, possible side effects, patientverbalized understanding. All questions were answered to the best of my ability. This discharge took greater then 30 minutes in planning, reviewing documentation, counseling the patient, and discussing with other team members." Visit Coding OBGYN Date of Service: Jun 23, 2024 Billing Provider: SIVAN AZEVEDO DO FREELANCE DIGITAL PROJECT MANAGER Common Visit Codes: 92103-NCQ/OBS SAME DATE (MOD) SIVAN AZEVEDO DO Jun 23, 2024 06:58
== END 2024-06-23 04:18 | disposition home or self-care (01) ==
LOC: LDRP 02:47
PROVIDERS: ADMIT Obstetrics & Gynecology; ATTEND Obstetrics & Gynecology
DX: O24.419 Gestational diabetes mellitus in pregnancy, unspecified control (principal); O40.3XX0 Polyhydramnios, third trimester, not applicable or unspecified; Z98.890 Other specified postprocedural states; Z79.899 Other long term (current) drug therapy; Z3A.37 37 weeks gestation of pregnancy
CPT/HCPCS: 81002; 82948; 82962; 84112; 94760; G0378; Q0114

== ENCOUNTER 2024-06-24 15:45 | Observation (INO) | payer BC, MEDICAID ==
--- NOTE | 2024-06-24 17:49 | DVH ---
BIOPHYSICAL PROFILE HISTORY: gdma2 TECHNIQUE: Multiple transabdominal real-time grayscale sonographic images through the gravid uterus of the fetus with duplex Doppler color flow and M-mode spectral analysis FINDINGS: BIOPHYSICAL PROFILE: breathing score: 2 movement score: 2 tone score: 2 Quantitative STEPHEN score: 2 (STEPHEN: 22.7 Cm.) Total score: 8/8 The cervix not measured Single live fetus in cephalic presentation. heart rate 131 beats per minute. Fundal Grade 2 placenta without previa or abruption Single live fetus at 37 weeks 1 day Biophysical profile score 8/8 corresponding to an SHASHANK of 07/14/2024 Estimated weight not measured g IMPRESSION: 1. Biophysical profile score: 8/8 2. position cephalic 3. Placental fundal. 4. STEPHEN: 22.7 cm
--- NOTE | 2024-06-24 23:23 | DVHDS2 ---
Discharge Summary Date of Admission Jun 24, 2024 at 15:45 Date of Discharge: Jun 24, 2024 Admitting Diagnosis GDM Wounds: A2 37 weeks Labs/Diagnostic Data: Laboratory Results Test 06/24/24 17:35 POC Glucose 146 mg/dl (70-106) Brief Hx & Hospital Course: NST ultrasound Consults/Reason for consult Time Condition at Discharge: Good Final Diagnosis/Problems List GDM A2 37 weeks Discharge Disposition: Home Discharge Instruct/Medications Diet: Regular Activity: No Restrictions, As Tolerated Activity comment: Kick counts labor precautions Discharge Statement: "Patient was advised to return to the ER or call 911 if any headaches, dizziness, shortness of breath, chest pain, abdominal pain, bleeding, fevers, or worsening of medical condition. Patient was counseled about treatment plan, medications, possible side effects, patientverbalized understanding. All questions were answered to the best of my ability. This discharge took greater then 30 minutes in planning, reviewing documentation, counseling the patient, and discussing with other team members." ASSESSMENT ASSESSMENT Assessment Visit Coding OBGYN Date of Service: Jun 24, 2024 Billing Provider: GOMEZ SANTA DO ORTHOPEDIC NURSE PRACTITIONER Common Visit Codes: 30625-ZKL/OBS SAME DATE (HIGH), 56986-QRJ/OBS DISCH DAY <30MIN ORTHOPEDIC NURSE PRACTITIONER Procedure Codes: 79019-67- NON-STRESS TEST GOMEZ SANTA DO Jun 24, 2024 23:23
== END 2024-06-24 18:13 | disposition home or self-care (01) ==
LOC: LDRP 15:45
PROVIDERS: ADMIT Obstetrics & Gynecology; ATTEND Obstetrics & Gynecology
DX: O24.419 Gestational diabetes mellitus in pregnancy, unspecified control (principal); Z98.890 Other specified postprocedural states; Z79.899 Other long term (current) drug therapy; Z3A.37 37 weeks gestation of pregnancy
CPT/HCPCS: 76818; 81002; 82948; 82962; 94760; G0378; 76819

== ENCOUNTER 2024-06-26 08:37 | Observation (INO) | payer BC, MEDICAID ==
--- NOTE | 2024-06-26 09:52 | DVH ---
BIOPHYSICAL PROFILE HISTORY: DECREASED MOVEMENT/GDMA2 TECHNIQUE: Multiple transabdominal real-time grayscale sonographic images through the gravid uterus of the fetus with duplex Doppler color flow and M-mode spectral analysis FINDINGS: BIOPHYSICAL PROFILE: breathing score: 2 movement score: 2 tone score: 2 Quantitative STEPHEN score: 2 (STEPHEN: 21.4 Cm.) Total score: 8 The cervix not well visualized. Single live fetus in cephalic presentation. heart rate 134 beats per minute. Grade 2 fundal placenta without previa or abruption IMPRESSION: Biophysical profile score: 8
--- NOTE | 2024-06-26 15:41 | DVHDS2 ---
Physician Discharge Progress N Final Diagnosis: gdm 37wks ,decreaesd movement Operations or Procedures: Operations or Procedures nst,sono nst reviewed ,bpp nl Condition on Discharge: Good Disposition: Home Discharge Instructions: Diet: Consistent carbohydrate Activity: Light activity Medications: na Follow Up Care: Specialist: 2d Discharge Statement: "Patient was advised to return to the ER or call 911 if any headaches, dizziness, shortness of breath, chest pain, abdominal pain, bleeding, fevers, or worsening of medical condition. Patient was counseled about treatment plan, medications, possible side effects, patientverbalized understanding. All questions were answered to the best of my ability. This discharge took greater then 30 minutes in planning, reviewing documentation, counseling the patient, and discussing with other team members." Visit Coding OBGYN Date of Service: Jun 26, 2024 Billing Provider: LISA HARRIS DO REFINISHER Common Visit Codes: 78160-RAZOEPR OBS CARE (HIGH) REFINISHER Procedure Codes: 56791-03- NON-STRESS TEST LISA HARRIS DO Jun 26, 2024 15:41
== END 2024-06-26 10:24 | disposition home or self-care (01) ==
LOC: LDRP 08:37 → UNDOADMOB 08:37 → LDRP 08:44 → UNDODISOB 10:24
PROVIDERS: ADMIT Obstetrics & Gynecology; ATTEND Obstetrics & Gynecology
DX: O24.419 Gestational diabetes mellitus in pregnancy, unspecified control (principal); O36.8130 Decreased fetal movements, third trimester, not applicable or unspecified; Z3A.37 37 weeks gestation of pregnancy; Z98.890 Other specified postprocedural states; Z79.899 Other long term (current) drug therapy
CPT/HCPCS: 76818; 81002; 82948; 82962; 94760; G0378; 76819

== ENCOUNTER 2024-06-29 15:02 | Observation (INO) | payer BC, MEDICAID ==
--- NOTE | 2024-06-29 16:10 | DVH ---
BIOPHYSICAL PROFILE HISTORY: GDMA2 Comparison study: No significant change from prior 11 biophysical profile studies : 06/26/2024, 06/24, 06/20/2024, 06/15/2024, 06/12/2024, 06/08/2024, 06/06/2024, 06/01/2024, 05/29/2024, 05/25/2024 , 05/22/2024, TECHNIQUE: Multiple transabdominal real-time grayscale sonographic images through the gravid uterus of the fetus with duplex Doppler color flow and M-mode spectral analysis FINDINGS: BIOPHYSICAL PROFILE: breathing score: 2 movement score: 2 tone score: 2 Quantitative STEPHEN score: 2 (STEPHEN: 20 Cm.) Total score: 8/8 [Single live fetus in cephalic presentation. heart rate 129 beats per minute. Posterior fundal Grade 2 placenta without previa or abruption. Prominent vessels centrally. Unchange d from prior studies. Single live fetus at 37 weeks 6 days Biophysical profile score 8/8 corresponding to an SHASHANK of 07/14/2024 Estimated weight non calculi g IMPRESSION: 1. Biophysical profile score: 8/8
--- NOTE | 2024-06-29 18:39 | DVHDS2 ---
Discharge Summary Date of Admission June 29, 2024 at 15:02 Date of Discharge: June 29, 2024 Admitting Diagnosis 37 weeks Brief Hx & Hospital Course: GDM A2 Condition at Discharge: Good Final Diagnosis/Problems List Reasuring FHT and US Discharge Disposition: Home Discharge Instruct/Medications Diet: Regular Activity: Light activity Activity comment: Kick counts labor precautions everything descend kick counts labor Discharge Statement: "Patient was advised to return to the ER or call 911 if any headaches, dizziness, shortness of breath, chest pain, abdominal pain, bleeding, fevers, or worsening of medical condition. Patient was counseled about treatment plan, medications, possible side effects, patientverbalized understanding. All questions were answered to the best of my ability. This discharge took greater then 30 minutes in planning, reviewing document ation, counseling the patient, and discussing with other team members." ASSESSMENT ASSESSMENT Assessment Visit Coding OBGYN Date of Service: June 29, 2024 Billing Provider: GOMEZ SANTA DO MINER ASSISTANT Common Visit Codes: 58907-GBF/OBS SAME DATE (LOW), 20532-RAJ/OBS SAME DATE (MOD), 65363-ZJL/OBS SAME DATE (HIGH) MINER ASSISTANT Procedure Codes: 81070-48- NON-STRESS TEST GOMEZ SANTA DO June 29, 2024 18:39
== END 2024-06-29 16:18 | disposition home or self-care (01) ==
LOC: LDRP 15:02
PROVIDERS: ADMIT Obstetrics & Gynecology; ATTEND Obstetrics & Gynecology
DX: O24.419 Gestational diabetes mellitus in pregnancy, unspecified control (principal); Z98.890 Other specified postprocedural states; Z79.899 Other long term (current) drug therapy; Z3A.37 37 weeks gestation of pregnancy
CPT/HCPCS: 76819; 81002; 82948; G0378

== ENCOUNTER 2024-07-03 06:09 | Observation (INO) | payer BC, MEDICAID ==
[2024-07-03] MEDS ORDERED: FERR1TAB31 PO (08:58)
--- NOTE | 2024-07-03 09:48 | DVH ---
CLINICAL HISTORY: Gestational diabetes. COMPARISON: US BIOPHYSICAL PROFILE on DOS: 06/29/24, US BIOPHYSICAL PROFILE on DOS: 06/26/24, US BIOPHYS ICAL PROFILE on DOS: 06/24/24 TECHNIQUE: biophysical profile was performed. Transabdominal sonographic images of the fetus we re obtained. FINDINGS: The fetus is in cephalic position. heart rate measures 141 BPM. Amniotic fluid index measures 17.7 cm. The placenta is fundal/posterior in position without evidence of previa or abruptio n. BPP profile is an overall score of 8/8, with 2/2 points for breathing, with at least one episode of breathing over a 30 second duration during a 30 minute observation, 2/2 points for m ovements, with 3 or more discrete body or limb movements, 2/2 points for tone, with one or more episodes of extremity extension with return to flexion, or opening and closing of hand, and 2/ 2 points for amniotic fluid, with at least 1 pocket of amniotic fluid that measures 2 cm in 2 perpend icular planes. IMPRESSION: BPP score of 8/8.
--- NOTE | 2024-07-03 14:32 | DVHDS2 ---
Physician Discharge Progress N Final Diagnosis: GDMA2 38WKS Operations or Procedures: Operations or Procedures NST REACTIVE REVIWED Condition on Discharge: Good Disposition: Home Discharge Instructions: Diet: Consistent carbohydrate Activity: No Restrictions, As Tolerated Follow Up/Referral: Pre-op for C/S Medications: NA Follow Up Care: Specialist: 3D Discharge Statement: "Patient was advised to return to the ER or call 911 if any headaches, dizziness, shortness of breath, chest pain, abdominal pain, bleeding, fevers, or worsening of medical condition. Patient was counseled about treatment plan, medications, possible side effects, patient�verbalized understanding. All questions were answered to the best of my ability. This discharge took greater then 30 minutes in planning, reviewing documentation, counseling the patient, and discussing with other team members." Visit Coding OBGYN Date of Service: July 03, 2024 Billing Provider: LISA HARRIS DO PACK MULE WORKER Common Visit Codes: [id number] INP/OBS CARE (HIGH) PACK MULE WORKER Procedure Codes: 15729-55- NON-STRESS TEST LISA HARRIS DO July 03, 2024 14:32
== END 2024-07-03 10:26 | disposition home or self-care (01) ==
LOC: LDRP 08:30 → UNDOADMOB 08:30 → LDRP 08:48 → UNDODISOB 10:26
PROVIDERS: ADMIT Obstetrics & Gynecology; ATTEND Obstetrics & Gynecology
DX: O24.419 Gestational diabetes mellitus in pregnancy, unspecified control (principal); Z3A.38 38 weeks gestation of pregnancy
CPT/HCPCS: 59025; 76819; 81002; 82948; 82962; 94760; G0378; 76818

== ENCOUNTER 2024-07-05 07:00 | Inpatient (IN) | payer BC, MEDICAID ==
[~2024-07-05] VITALS: Ht 149.9 cm; Wt 72.6 kg
[~2024-07-05 07:00] MED LIST changes: -CLOT1CRE51 VG; +FERR1TAB31 PO; -FLUC200T50 PO; -NIFE10CA52 PO
[2024-07-05 17:16] LABS: Basophils # (auto) 0 10 ^3/uL (0-0.2); Basophils % (auto) 0.3 % (0.0-2.0); Eosinophils # (auto) 0.2 10 ^3/uL (0-0.8); Eosinophils % (auto) 2.9 % (0.0-7.0); Hematocrit 30.8 % (36.0-46.0); Hemoglobin 10.6 g/dL (12.2-16.2); Lymphocytes # (auto) 1.4 10 ^3/uL (0.4-5.4); Lymphocytes % (auto) 15.9 % (10.0-50.0); Mean Corpuscular Hemoglobin 28.3 pg (28.0-32.0); Mean Corpuscular Hgb Conc. 34.4 g/dL (32.0-36.0); Mean Corpuscular Volume 82.1 fL (80.0-100.0); Monocytes # (auto) 0.9 10 ^3/uL (0-1.3); Monocytes % (auto) 10.2 % (0.0-12.0); Neutrophils # (auto) 6.2 10 ^3/uL (1.6-8.6); Neutrophils % (auto) 70.7 % (37.0-80.0); Nucleated Red Blood Cells % 0.1 %; Platelet Count (auto) 256 10^3/uL (140-450); Red Blood Cells 3.76 10^6/uL (4.0-5.20); Red Cell Distribution Width 13.8 % (11.8-14.3); White Blood Cell 8.7 10^3/uL (4.4-10.8)
[2024-07-05 17:31] LABS: Urine Bacteria FEW /hpf (None Seen); Urine Blood Negative /uL (Negative); Urine Clarity Clear (Clear); Urine Color Light-Yellow (Yellow); Urine Mucus FEW (None Seen); Urine Protein, UAD TRACE (Negative); Urine Specific Gravity 1.025 (1.001-1.035); Urine Squamous Epithelial Cell FEW /hpf (<5); Urine Urobilinogen Normal (Negative); Urine WBC 4 /HPF (0-5); Urine pH 6.5 (5.0-9.0)
[2024-07-05 17:37] LABS: Albumin 3.7 g/dL (3.2-4.8); Anion Gap 9 (5-15); BUN/Creatinine Ratio 11.5 (10.0-20.0); Calcium 9.1 mg/dL (8.7-10.4); Carbon Dioxide 24 mmol/L (20-31); Chloride 105 mmol/L (98-107); Potassium 3.6 mmol/L (3.5-5.1); Sodium 138 mmol/L (136-145)
[2024-07-05 17:38] LABS: Bilirubin, Total 0.4 mg/dL (0.2-1.0)
[2024-07-05 17:42] LABS: Alanine Aminotransferase < 9 U/L (7-40); Alkaline Phosphatase 188 U/L (46-116); Aspartate Aminotransferase 9 U/L (13-40); Blood Urea Nitrogen 7 mg/dL (9-23); Glucose 117 mg/dL (74-106)
[2024-07-05 17:42] LABS: Amphetamine Screen, Urine Neg (NEGATIVE); Barbiturate Scree,Urine Neg (NEGATIVE); Benzodiazephine Screen, Urine Neg (NEGATIVE); Cannabinoid Screen, Urine Neg (NEGATIVE); Cocaine Screen, Urine Neg (NEGATIVE); Opiate Scree,Urine Neg (NEGATIVE); Phencyclidine Screen, Urine Neg (NEGATIVE)
[2024-07-05 17:44] LABS: INR 0.91 (0.9-1.15); Partial Thromboplastin Time 25.1 SEC (24.5-34.5); Prothrombin Time 9.7 sec (9.3-11.8)
[2024-07-06] VITALS (21 sets, daily range): BP systolic 96–128; BP diastolic 56–75; PULSE 70–103; RESP 16–18; TEMP 97.9–98.2; O2SAT 95–100
[2024-07-06] MEDS: LACTATED RINGER'S 1,000 ML IV ONE (06:55)
[2024-07-06] MEDS: LACTATED RINGER'S 1,000 ML IV SCH (06:55)
[2024-07-06] MEDS ORDERED: MORPHINE SULF PF 5 MG/10 ML VIAL ONE (07:00)
[2024-07-06] MEDS ORDERED: fentaNYL CITRATE 100 MCG/2 ML VL ONE (07:00)
[2024-07-06] MEDS: ceFAZolin 2 GM/D5W50ml 50 ML IV ONE (07:02)
[2024-07-06] MEDS ORDERED: IBUP-1456 PO (07:10)
[2024-07-06] MEDS ORDERED: HYDR-4072 PO (07:10)
[2024-07-06] MEDS ORDERED: DOCU-94 PO (07:10)
[2024-07-06] MEDS ORDERED: ceFAZolin 1GM/50ML 50 ML IV SCH (07:15)
[2024-07-06] MEDS ORDERED: ONDANSETRON HCL 4 MG/2 ML VIAL IV PRN ×2 (07:15→10:00)
[2024-07-06] MEDS: GUM (CHEWING) 1 GUM CHEW CHEW ONE (07:15)
--- NOTE | 2024-07-06 07:59 | DVHOP2 ---
Operative Report DATE OF OPERATION: 07/06/24 PREOPERATIVE DIAGNOSES: 1. iup at 38+wks inlabor desires pcs ,macrosomia,polyhydramnia,morbid obesity 2. Desires bilateral tubal ligation POSTOPERATIVE DIAGNOSES: 1. same. 2. Desires bilateral tubal ligation PROCEDURES: primary section with bilateral tubal ligation SURGEON: Angela Callejas D.O./monica ANESTHESIOLOGIST: naeem TYPE OF ANESTHESIA : spinal ESTIMATED BLOOD LOSS: 800 mL CONSENT: The patient was informed of the risks and benefits of the procedure. These include but are not limited to , complications of anesthesia, postoperative infection, incomplete relief of symptoms, recurrence of symptoms, damage to blood vessels, nerves and tendons, deep venous thrombosis, pulmonary embolism and possible need for repeat surgery in the future. Surgery was opted. FINDINGS: Baby [f] with apgars [8] and [9]. polyhydramnia,nuchal cord TISSUE TO PATHOLOGY: Segment of each tube. PROCEDURE IN DETAIL: The patient was taken to the operating room where she was placed under spinal anesthesia. She was then prepped and draped in the usual sterile manner in supine position with a leftward tilt. A Pfannenstiel skin incision was then made 2 cm above the symphysis pubis. This incision was carried to the underlying layer of fascia. The fascia was nicked in the midline and the incision was extended laterally. The superior aspect of the fascial incision was grasped and elevated. Underlying rectus muscle was dissected off bluntly. The same procedure was done to the inferior aspect of the fascial incision. The rectus muscles were then in the midline. Peritoneum was identified and entered. Peritoneal incision was extended superiorly and inferi lázaro with good visualization of the bladder. Bladder blade was inserted. Vesicouterine peritoneum was identified and entered. Lower uterine segment was incised in a transverse fashion. The infant was delivered from vertex presentation. The infant was baby [f] with Apgars of [8] and [9]. Placenta was then removed manually. Uterus was exteriorized and cleared off all clots and debris. Uterine incision was repaired using 0 Vicryl in a double-layered fashion. No bleeding was noted. Bilateral tubal ligation was then performed using Sentinel. Placed in the ampullary region and identifying the fimbria distally. The mesosalpinx was entered using Bovie, using 0 plain gut suture, midportion of the tube was doubly tied approximately 1 cm of each tube. The m idsection was excised and sent out of the room for pathology. No bleeding was noted. The pedicular end was then cauterized. No bleeding was noted. The same procedure was done on the opposite side. No bleeding was noted. Uterus was then returned to the abdomen. The gutters were cleared off all clots and debris. Peritoneum was closed using 0 Vicryl, fascia was closed using 0 Maxon, and skin was closed using lyric. Estimated blood loss was noted to be 500 mL. The patient tolerated the procedure well. She was taken to the recovery room in stable condition. Visit Coding OBGYN Date of Service: July 06, 2024 Billing Provider: ANGELA CALLEJAS DO INCLUSION PARAEDUCATOR Common Visit Codes: 31470-EGHZDCI INP/OBS CARE (HIGH) INCLUSION PARAEDUCATOR Procedure Codes: [id number] DELIVERY ONLY ANGELA CALLEJAS DO July 06, 2024 07:59
--- NOTE | 2024-07-06 08:07 | POSTOP ---
Post-Operative Note Post-Operative Note Preop Diagnosis iup at 38+wks in labor,desires pcs,macrosomia,polyhydramnia Postop Diagnosis: same Operation performed pltcs Specimen baby girl,apgars 8-9,poly,nuchal cord Anesthesia: Regional Anesthesiologist: naeem marie Blood Loss(fluid mgmt) 800ml Surgeon Lisa Callejas Supervisor Cell Room monica Implant filschie Complications & Mgmt none Date 07/06/24 Time 08:00 Visit Coding OBGYN Date of Service: July 06, 2024 Billing Provider: LISA CALLEJAS DO PLATER SUPERVISOR Common Visit Codes: 52136-PWOPXAA INP/OBS CARE (HIGH) PLATER SUPERVISOR Procedure Codes: 86471-[id number] DELIVERY ONLY LISA CALLEJAS DO July 06, 2024 08:07
[2024-07-06] MEDS: ONDANSETRON HCL 4 MG/2 ML VIAL IV ONE (08:30)
[2024-07-06 08:33] LABS: Protein, Urine 13.2 mg/dL (1-14)
[2024-07-06 08:36] LABS: Creatinine, Urine 68.71 mg/dL (30.0-125.0); Urine Protein/Creatinine Ratio 0.19
[2024-07-06] MEDS ORDERED: ePHEDrine SULFATE 50 MG/ML AMP IV PRN (10:00)
[2024-07-06] MEDS: ACETAMINOPHEN IV 1000 MG/100ML (10MG/ML) IV PRN (10:44)
[2024-07-06] MEDS: ceFAZolin 1GM/50ML 50 ML IV SCH (14:31)
[2024-07-06] MEDS ORDERED: AMMONIA 0.33 ML INHALANT IN ONE (15:47)
[2024-07-06] MEDS ORDERED: FAMOTIDINE (10MG/ML) 2ML VL IV ONE (17:45)
[2024-07-06 19:58] LABS: Basophils # (auto) 0 10 ^3/uL (0-0.2); Basophils % (auto) 0.2 % (0.0-2.0); Eosinophils # (auto) 0 10 ^3/uL (0-0.8); Eosinophils % (auto) 0.1 % (0.0-7.0); Hematocrit 28.7 % (36.0-46.0); Hemoglobin 9.8 g/dL (12.2-16.2); Lymphocytes # (auto) 1.2 10 ^3/uL (0.4-5.4); Lymphocytes % (auto) 7.2 % (10.0-50.0); Mean Corpuscular Hemoglobin 27.8 pg (28.0-32.0); Mean Corpuscular Hgb Conc. 34.1 g/dL (32.0-36.0); Mean Corpuscular Volume 81.4 fL (80.0-100.0); Monocytes # (auto) 1.2 10 ^3/uL (0-1.3); Monocytes % (auto) 7.6 % (0.0-12.0); Neutrophils # (auto) 13.6 10 ^3/uL (1.6-8.6); Neutrophils % (auto) 84.9 % (37.0-80.0); Nucleated Red Blood Cells % 0.1 %; Platelet Count (auto) 256 10^3/uL (140-450); Red Blood Cells 3.53 10^6/uL (4.0-5.20); Red Cell Distribution Width 13.6 % (11.8-14.3)
[2024-07-06] MEDS: LACT. RINGERS/OXYTOCIN 20UNITS 1,000 ML IV ONE (20:37)
[2024-07-07] VITALS (14 sets, daily range): BP systolic 89–132; BP diastolic 46–82; PULSE 66–94; RESP 16–20; TEMP 97.9–98.9; O2SAT 96–100
[2024-07-07] MEDS: KETOROLAC TROMETH 30 MG/ML 1ML VIAL IV ONE (00:59)
[2024-07-07 06:08] LABS: Basophils # (auto) 0 10 ^3/uL (0-0.2); Basophils % (auto) 0.3 % (0.0-2.0); Eosinophils # (auto) 0.1 10 ^3/uL (0-0.8); Eosinophils % (auto) 0.9 % (0.0-7.0); Hematocrit 27.6 % (36.0-46.0); Hemoglobin 9.7 g/dL (12.2-16.2); Lymphocytes # (auto) 1.7 10 ^3/uL (0.4-5.4); Lymphocytes % (auto) 13.8 % (10.0-50.0); Mean Corpuscular Hemoglobin 28.8 pg (28.0-32.0); Mean Corpuscular Hgb Conc. 35.2 g/dL (32.0-36.0); Mean Corpuscular Volume 81.8 fL (80.0-100.0); Monocytes # (auto) 1.2 10 ^3/uL (0-1.3); Monocytes % (auto) 9.7 % (0.0-12.0); Neutrophils # (auto) 9.1 10 ^3/uL (1.6-8.6); Neutrophils % (auto) 75.3 % (37.0-80.0); Platelet Count (auto) 227 10^3/uL (140-450); Red Blood Cells 3.38 10^6/uL (4.0-5.20); Red Cell Distribution Width 13.4 % (11.8-14.3)
--- NOTE | 2024-07-07 08:02 | DVHPN2 ---
Chief Complaints Patient reports: No new complaints Nursing reports: No new complaints Objective Vitals Vital Signs Date Time Temp Pulse Resp B/P (MAP) Pulse Ox O2 Delivery O2 Flow Rate FiO2 07/07/24 05:30 80 20 98 07/07/24 02:45 97.9 98/52 (67) 97.9 07/06/24 18:45 Room Air 07/06/24 08:26 99 Medications Current Medications Medications (Trade) Dose Ordered Sig/Debbie Route PRN Reason Start Time Stop Time Status Last Admin Acetaminophen (Ofirmev) 1,000 mg Q8HPRN PRN IV MODERATE PAIN (4-6 PAIN SCALE) 07/06/24 10:00 07/07/24 09:59 07/07/24 04:29 Acetaminophen/ Hydrocodone Bitart ([place] 5/325MG Tab) 1 tab Q4HPRN PRN PO FOR PAIN 1-6 07/07/24 06:30 Acetaminophen/ Hydrocodone Bitart ([place] 5/325MG Tab) 2 tab Q4HPRN PRN PO FOR PAIN 7-07/07/24 06:30 Dimethicone (Mylicon Tab) 80 mg QID PO 07/07/24 12:00 Docusate Sodium (Colace Capsule) 100 mg Q12HR PO 07/07/24 10:00 Ephedrine Sulfate (ePHEDrine SULFATE) 10 mg [id number] PRN IV Systolic BP <90; Call Provider 07/06/24 10:00 07/07/24 09:59 Ibuprofen (Motrin Tablet) 800 mg Q8HP PRN PO BREAKTHROUGH PAIN 07/07/24 06:30 Ondansetron HCl (Zofran) 4 mg Q4HP PRN IV NAUSEA / VOMITING 07/06/24 10:00 General: Normal Lungs: Normal Cardiovascular: Normal Abdominal: Soft Extremities: Normal Studies Laboratory Tests 07/07/24 05:50 07/05/24 16:38 Test 07/05/24 16:38 Range/Units Serum Glucose 117 H 74-106 mg/dL Ass/Plan Assessment S/P PCS WITH BTL Plan SUPPORTIVE CARE Visit Coding OBGYN Date of Service: July 07, 2024 Billing Provider: LISA HARRIS DO VENEER TAPING MACHINE OFFBEARER Common Visit Codes: [id number] INP/OBS CARE(LOW) LISA HARRIS DO July 07, 2024 08:02
--- NOTE | 2024-07-07 08:08 | DVHPN2 ---
Progress Note Date Seen: July 07, 2024 Subjective S: Lochia minimal. Advancing diet well tolerated. Ambulating and voiding well, reports feeling dizzy / lightheaded when she gets up but reports she has history of intermittently feeling dizzy. Pain relieved with analgesics. Passing flatus but no BM yet. Pumping in preparation for of . Infant transferred as he requires a higher level of care vital signs Vital Sign Date Time Temp Pulse Resp B/P (MAP) Pulse Ox O2 Delivery O2 Flow Rate FiO2 07/07/24 05:30 80 20 98 07/07/24 02:45 97.9 98/52 (67) 97.9 07/06/24 18:45 Room Air 07/06/24 08:26 99 Total Intake and Output 07/06/24 07/06/24 07/07/24 15:00 23:00 07:00 Intake Total 1225 ml 1450 ml Output Total 800 ml 2625 ml 950 ml Balance -800 ml -1400 ml 500 ml medications Current Medications Medications Dose Ordered Sig/Debbie Route Start Time Stop Time Status Last Admin Dose Admin Lactated Ringer's 1,000 ml @ 125 mls/hr Q8H IV 07/06/24 05:00 07/06/24 19:09 125 MLS/HR Ondansetron HCl 4 mg Q4HP PRN IV 07/06/24 07:15 Cefazolin Sodium 50 ml @ 100 mls/hr Q8H IV 07/06/24 07:15 07/06/24 23:44 Cancel Ondansetron HCl 4 mg Q4HP PRN IV 07/06/24 10:00 Ephedrine Sulfate 10 mg [id number] PRN IV 07/06/24 10:00 07/07/24 09:59 Acetaminophen 1,000 mg Q8HPRN PRN IV 07/06/24 10:00 07/07/24 09:59 07/07/24 04:29 1,000 MG Docusate Sodium 100 mg Q12HR PO 07/07/24 10:00 Dimethicone 80 mg QID PO 07/07/24 12:00 Ibuprofen 800 mg Q8HP PRN PO 07/07/24 06:30 Acetaminophen/ Hydrocodone Bitart 1 tab Q4HPRN PRN PO 07/07/24 06:30 Acetaminophen/ Hydrocodone Bitart 2 tab Q4HPRN PRN PO 07/07/24 06:30 laboratory and microbiology Laboratory Tests 07/07/24 05:50 07/05/24 16:38 Test 07/05/24 16:38 Range/Units Serum Glucose 117 H 74-106 mg/dL Objective A&O x3 NAD. Afebrile, VSS Chest: heart and lung sounds normal. Breasts: Nipples intact w/o cracks or soreness Abdomen: normal BS, soft, non-tender, no rebound or guarding, fundus firm @ U- 1, Lower abdominal Incision site with Sylke dressing on, open to fresh air same clean, dry and intact. No edema, erythema or induration Extremities: no edema or tenderness Lochia - minimal Assessment/Plan A/P: 29 yo now Post operative & ppd #1 s/p Primary Section with BTL, doing well. Anemia Blood Type: O Rh: Negative ('s blood type A, Rh neg, Cheo Neg) Plans to Breast feed; currently pumping Q 2 hours Rubella Immune Pain control with oral medications Bowel regimen: Increase fluid intake and fiber in diet, Laxative PRN Plan discussed with: Patient Visit Coding OBGYN Date of Service: July 07, 2024 Billing Provider: NICOLAS MASSEY CNM HOME THERAPY TEACHER Common Visit Codes: [id number] INP/OBS CARE(HIGH) NICOLAS MASSEY CNM July 07, 2024 08:08
[2024-07-07] MEDS: DOCUSATE SOD 100 MG CAP PO SCH (11:00)
[2024-07-07] MEDS: HYDROcodone-ACET 5/325MG TAB PO PRN (11:36)
[2024-07-07] MEDS: SIMETHICONE 80 MG CHEWABLE TABLET PO SCH (11:37)
[2024-07-07] MEDS: IBUPROFEN 800 MG TAB PO PRN (21:55)
[2024-07-08 03:20] VITALS: BP 105/72; PULSE 82; RESP 20; TEMP 98.6; O2SAT 100
[2024-07-08] MEDS: HYDROcodone-ACET 5/325MG TAB PO PRN (04:16)
--- NOTE | 2024-07-08 05:10 | DVHPN2 ---
Progress Note Date Seen: July 08, 2024 Subjective S: Lochia minimal. Advancing diet well tolerated. Ambulating and voiding well, reports she did not feel dizzy with ambulation yesterday. Pain relieved with analgesics. Passing flatus but no BM yet. Feels much relief from gas pain she felt the day before. Pumping in preparation for of infant. transferred as he requires a higher level of care [ vital signs Vital Sign Date Time Temp Pulse Resp B/P (MAP) Pulse Ox O2 Delivery O2 Flow Rate FiO2 07/08/24 03:20 98.6 82 20 105/72 (83) 100 98.6 07/07/24 18:38 Room Air 07/06/24 08:26 99 Total Intake and Output 07/07/24 07/07/24 07/08/24 15:00 23:00 07:00 Intake Total 600 ml Output Total 1300 ml 600 ml Balance -700 ml -600 ml medications Current Medications Medications Dose Ordered Sig/Debbie Route Start Time Stop Time Status Last Admin Dose Admin Lactated Ringer's 1,000 ml @ 125 mls/hr Q8H IV 07/06/24 05:00 07/06/24 19:09 125 MLS/HR Ondansetron HCl 4 mg Q4HP PRN IV 07/06/24 07:15 Cefazolin Sodium 50 ml @ 100 mls/hr Q8H IV 07/06/24 07:15 07/06/24 23:44 Cancel Ondansetron HCl 4 mg Q4HP PRN IV 07/06/24 10:00 Docusate Sodium 100 mg Q12HR PO 07/07/24 10:00 07/07/24 21:55 100 MG Dimethicone 80 mg QID PO 07/07/24 12:00 07/07/24 21:54 80 MG Ibuprofen 800 mg Q8HP PRN PO 07/07/24 06:30 07/07/24 21:55 800 MG Acetaminophen/ Hydrocodone Bitart 1 tab Q4HPRN PRN PO 07/07/24 06:30 07/08/24 04:16 1 TAB Acetaminophen/ Hydrocodone Bitart 2 tab Q4HPRN PRN PO 07/07/24 06:30 07/07/24 16:43 2 TAB laboratory and microbiology Laboratory Tests 07/07/24 05:50 07/05/24 16:38 Test 07/05/24 16:38 Range/Units Serum Glucose 117 H 74-106 mg/dL Objective A&O x3 NAD. Afebrile, VSS Chest: heart and lung sounds normal. Breasts: Nipples intact w/o cracks or soreness Abdomen: normal BS, soft, non-tender, no rebound or guarding, fundus firm @ U- 1, Lower abdominal Incision site with Sylke dressing on, open to fresh air same clean, dry and intact. No edema, erythema or induration Extremities: no edema or tenderness Lochia - minimal Assessment/Plan A/P: 29 yo now Post operative & ppd #2 s/p Primary Section with BTL. doing well. Anemia Blood Type: O Rh: Negative. (Infant Blood type A, RH negative, Cheo Negative) Plans to Breast feed; currently pumping Rubella Immune Pain control with oral medications Bowel regimen: Increase fluid intake and fiber in diet, Laxative PRN Plan discussed with: Patient Visit Coding OBGYN Date of Service: July 08, 2024 Billing Provider: NICOLAS MASSEY CNM ASSOCIATE PROFESSOR OF MEDIA ARTS Common Visit Codes: [id number] INP/OBS CARE(HIGH) NICOLAS MASSEY CNM July 08, 2024 05:10
[2024-07-08 06:45] VITALS: BP 115/69; PULSE 99; RESP 18; TEMP 97.7; O2SAT 98
--- NOTE | 2024-07-08 07:48 | DVHDS2 ---
Discharge Summary Date of Admission July 06, 2024 at 04:07 Date of Discharge: July 08, 2024 Admitting Diagnosis IUP at 38w 6d Labor Macrosomia Obesity Polyhydramnios Desires Primary Section with BTL Labs/Diagnostic Data: Laboratory Results Test 07/07/24 05:50 07/06/24 06:40 07/05/24 16:38 07/05/24 16:20 White Blood Count 12.0 10^3/uL (4.4-10.8) Red Blood Count 3.38 10^6/uL (4.0-5.20) Hemoglobin 9.7 g/dL (12.2-16.2) Hematocrit 27.6 % (36.0-46.0) Mean Corpuscular Volume 81.8 fL (80.0-100.0) Mean Corpuscular Hemoglobin 28.8 pg (28.0-32.0) Mean Corpuscular Hemoglobin Concent 35.2 g/dL (32.0-36.0) Red Cell Distribution Width 13.4 % (11.8-14.3) Platelet Count 227 10^3/uL (140-450) Mean Platelet Volume 7.0 fL (6.9-10.8) Neutrophils (%) (Auto) 75.3 % (37.0-80.0) Lymphocytes (%) (Auto) 13.8 % (10.0-50.0) Monocytes (%) (Auto) 9.7 % (0.0-12.0) Eosinophils (%) (Auto) 0.9 % (0.0-7.0) Basophils (%) (Auto) 0.3 % (0.0-2.0) Neutrophils # (Auto) 9.1 10 ^3/uL (1.6-8.6) Lymphocytes # (Auto) 1.7 10 ^3/uL (0.4-5.4) Monocytes # (Auto) 1.2 10 ^3/uL (0-1.3) Eosinophils # (Auto) 0.1 10 ^3/uL (0-0.8) Basophils # (Auto) 0 10 ^3/uL (0-0.2) Nucleated Red Blood Cells 0.0 % Urine Creatinine 68.71 mg/dL (30.0-125.0) Urine Protein/Creatinine Ratio 0.19 Urine Total Protein 13.2 mg/dL (1-14) Prothrombin Time 9.7 sec (9.3-11.8) Prothrombin Time INR 0.91 (0.9-1.15) Activated Partial Thromboplast Time 25.1 SEC (24.5-34.5) Sodium Level 138 mmol/L (136-145) Potassium Level 3.6 mmol/L (3.5-5.1) Chloride Level 105 mmol/L (98-107) Carbon Dioxide Level 24 mmol/L (20-31) Anion Gap 9 (5-15) Blood Urea Nitrogen 7 mg/dL (9-23) Creatinine 0.61 mg/dL (0.550-1.02) Glomerular Filtration Rate Calc 124 mL/min (>90) BUN/Creatinine Ratio 11.5 (10.0-20.0) Serum Glucose 117 mg/dL (74-106) Uric Acid 3.0 mg/dL (3.1-7.8) Calcium Level 9.1 mg/dL (8.7-10.4) Total Bilirubin 0.4 mg/dL (0.2-1.0) Aspartate Amino Transferase (AST) 9 U/L (13-40) Alanine Aminotransferase (ALT) < 9 U/L (7-40) Alkaline Phosphatase 188 U/L (46-116) Total Protein 6.0 g/dL (5.7-8.2) Albumin 3.7 g/dL (3.2-4.8) Treponema pallidum Antibody Non-reactive (Negative) Hepatitis C Antibody Negative (Negative) Urine Color Light-yellow (Yellow) Urine Clarity Clear (Clear) Urine pH 6.5 (5.0-9.0) Urine Specific Ross 1.025 (1.001-1.035) Urine Protein Trace (Negative) Urine Ketones 1+ (Negative) Urine Blood Negative /uL (Negative) Urine Nitrite Negative (Negative) Urine Bilirubin Negative (Negative) Urine Urobilinogen Normal mg/dL (Negative) Urine Leukocyte Esterase Negative /uL (Negative) Urine RBC 2 /hpf (0 - 4) Urine Microscopic WBC 4 /HPF (0-5) Urine Squamous Epithelial Cells Few /hpf (<5) Urine Calcium Oxalate Crystals Few (None Seen) Urine Bacteria Few /hpf (None Seen) Urine Mucus Few (None Seen) Urine Glucose 2+ mg/dL (Normal) Urine Opiates Screen Neg (NEGATIVE) Urine Fentanyl Screen Neg (NEGATIVE) Urine Barbiturates Screen Neg (NEGATIVE) Urine Phencyclidine Screen Neg (NEGATIVE) Urine Amphetamines Screen Neg (NEGATIVE) Urine Benzodiazepines Screen Neg (NEGATIVE) Urine Cocaine Screen Neg (NEGATIVE) Urine Cannabinoids Screen Neg (NEGATIVE) Other Laboratory Tests 07/07/24 05:50 07/05/24 16:38 Brief Hx & Hospital Course: Ms Diaz was admitted on 07/06/24 at 38w 6d in labor but desires Primary Section with BTL. Macrosomia, Polyhydramnios and obesity. Surgery done under anesthesia without complication. Postoperative / course normal. Patient meeting & postoperative milestones. transferred for higher level of care that infant needed. Condition at Discharge: Stable Final Diagnosis/Problems List same Term - Delivered Primary Section with BTL Discharge Disposition: Home Discharge Instruct/Medications Diet: Regular Diet comment: Routine regular diet rich in fiber, protein, iron and vitamin C with adequate fluid intake. Activity: No Restrictions, As Tolerated Activity comment: Unrestricted. Advance as tolerated. No heavy lifting, pushing or straining. Pelvic rest x 6weeks. Balance activities with rest periods Follow Up/Referral: Follow up with OB Provider in 1 week Medications: Ibuprofen 600mg every 6 hours as needed for pain. Continue Vitamin and iron Discharge Statement: Post operative and self care instructions given. emergency signs and symptoms including pre-eclampsia precautions and signs of PPD reviewed with patient. Follow up with OB Provider in 1 week "Patient was advised to return to the ER or call 911 if any headaches, dizziness, shortness of breath, chest pain, abdominal pain, bleeding, fevers, or worsening of medical condition. Patient was counseled about treatment plan, medications, possible side effects, patient�verbalized understanding. All questions were answered to the best of my ability. This discharge took greater then 30 minutes in planning, reviewing documentation, counseling the patient, and discussing with other team members." ASSESSMENT ASSESSMENT Hospital Course Ms Diaz was admitted on 07/06/24 at 38w 6d in labor but desires Primary Section with BTL. Macrosomia, Polyhydramnios and obesity. Surgery done under anesthesia without complication. Postoperative / course normal. Patient meeting & postoperative milestones. transferred for higher level of care that needed. Assessment same UP at 38w 6d Labor Macrosomia Obesity Polyhydramnios Desires Primary Section with BTL Visit Coding OBGYN Date of Service: July 08, 2024 Billing Provider: NICOLAS MASSEY CNM MULTIFOCAL BUTTON GRINDER Common Visit Codes: [id number]-RQZ/OBS DISCH DAY <30MIN NICOLAS MASSEY CNM July 08, 2024 07:48
--- NOTE | 2024-07-10 08:20 | DVHHP ---
ADMIT DATE: 07/06/2024 CHIEF COMPLAINT: Desires primary with bilateral tubal ligation. HISTORY OF PRESENT ILLNESS: The patient is a 3 para 2 female with due date of 07/14, estimated gestational age of 39 weeks, admitted for primary due to macrosomia, uncontrolled diabetes and bilateral tubal ligation. The patient was told by Dr. Sanchez baby is macrosomic. Risks, complication of macrosomia including shoulder dystocia had been discussed with the patient. The patient opted for primary and tubal ligation. The patient also has polyhydramnios. PAST MEDICAL HISTORY: None. PAST SURGICAL HISTORY: None. SOCIAL HISTORY: None. FAMILY HISTORY: None. OBSTETRIC AND GYNECOLOGIC HISTORY: GDM. Blood type O negative. REVIEW OF SYSTEMS: Consistent with HPI. ALLERGIES: No known drug allergies. PHYSICAL EXAMINATION: VITAL SIGNS: Stable, afebrile. HEENT: Within normal limits. CARDIOVASCULAR: Regular rate and rhythm. LUNGS: Clear to auscultation. BREASTS: Symmetrical, no masses. ABDOMEN: Gravid. Estimated weight 9 pounds. PELVIC: Cervix closed, thick, high. EXTREMITIES: No clubbing, cyanosis or edema. IMPRESSION: * Intrauterine at 39 weeks with GDM. * Suspect macrosomia. * Desires primary with bilateral tubal ligation. PLAN: Primary with bilateral tubal ligation. Informed consent obtained. Risks and complications of surgery including infection, bleeding, hematoma formation, injury to bowel or bladder, surrounding organ, possibility of DVT, pulmonary embolism, risks of anesthesia discussed with the patient. Options reviewed. All questions answered. The patient fully understands. Failure rate with tubal sterilization discussed with the patient. The patient wishes to proceed with planned procedure. DO LATA Lorenzana TID: [id number] RECEIPT: [id number]
== END 2024-07-08 09:58 | disposition home or self-care (01) | DRG 785 ==
LOC: LDRP 07-06 04:07 → PREOBSVTOIN 07-06 04:24 → NUR 07-07 23:38 → LDRP 07-07 23:40
PROVIDERS: ADMIT Obstetrics & Gynecology; ATTEND Obstetrics & Gynecology
PROC: 0UB70ZZ Excision of Bilateral Fallopian Tubes, Open Approach (ICD-10-PCS; 2024-07-06)
PROC: 10D00Z1 Extraction of Products of Conception, Low, Open Approach (ICD-10-PCS; principal; 2024-07-06 07:08)
DX: O69.81X0 Labor and delivery complicated by cord around neck, without compression, not applicable or unspecified (principal); O36.63X0 Maternal care for excessive fetal growth, third trimester, not applicable or unspecified; O40.3XX0 Polyhydramnios, third trimester, not applicable or unspecified; O99.214 Obesity complicating childbirth; E66.01 Morbid (severe) obesity due to excess calories; Z30.2 Encounter for sterilization; Z37.0 Single live birth; Z3A.38 38 weeks gestation of pregnancy
CPT/HCPCS: 36415; 59025; 80053; 80307; 81001; 81002; 82570; 84156; 84550; 85025; 85610; 85730; 86780; 86803; 86850; 86900; 86901; 94760; 94762; 96360; 96361; G0378; J0131; J1885

== ENCOUNTER 2024-07-28 15:00 | Inpatient (IN) | payer BC, MEDICAID ==
[~2024-07-28] VITALS: Ht 149.9 cm; Wt 62.0 kg
[~2024-07-28 15:00] MED LIST changes: +DOCU-94 PO; +HYDR-4072 PO; +IBUP-1456 PO
--- NOTE | 2024-07-28 15:15 | ED.PDOC ---
History of Present Illness HPI Comments This is a 29-year-old female who comes in with chief complaint of syncopal episode as well as vaginal bleeding and headache. The patient states that she underwent a on 07/06 here at [facility]. The baby was then sent to the NICU at [facility]. The patient now comes to the emergency department's complaining of some diarrhea as well as weakness in his syncopal episode. The patient was discharged on 07/08 and developed some ankle swelling and facial swelling at that time. She called her primary care doctor and was placed on labetalol. She states that the swelling has now decreased but she now has some diarrhea as well as a headache. Today, the patient had a syncopal episode at home. She went to the floor without sustaining any type of trauma. 911 was called and the patient was transported to our facility. Over the past two days she has been having increased amounts of vaginal bleeding. EN route, the patient was given 885 mg of Tylenol IV piggyback for the pain which has now somewhat resolved. EN route also the patient had an Accu-Chek of 95. Upon arrival she is alert and able to answer all questions appropriately. Time Seen by MD: 15:01 Reviewed Notes: Nurses Notes, Medications, Allergies (No allergies to medic ations) Allergies: Coded Allergies: NO KNOWN ALLERGIES (Unverified , 07/30/23) Home Meds Active Scripts Ibuprofen (Ibuprofen) 800 Mg Tab, 800 MG PO TID PRN for 4 Days, #12 TAB Prov:LISA HARRIS DO 07/06/24 Hydrocodone-Acetaminophen (Hydrocodone/Acetaminophen 10-325 mg) 1 Tab Tab, 1 TAB PO Q6HPRN PRN for 7 Days, #28 TAB Prov:LISA HARRIS DO 07/06/24 Docusate Sodium (Colace) 100 Mg Cap, 1 CAP PO BID, #60 CAP 2 Refills Prov:LISA HARRIS DO 07/06/24 Reported Medications Ferrous Gluconate (IRON) 27 Mg Tab, 27 MG PO DAILY, TAB 07/03/24 Insulin Glargine (Insulin Glargine) 100 Unit/Ml Taylor, 18 UNIT SC HS, ML 06/06/24 Vit W/ Ferrous Fumara () Tab, 1 OR, TAB 05/22/24 Information Source: Patient, Emergency Med Personnel Mode of Arrival: EMS Severity: Moderate Timing: Hours Duration: Since onset Prehospital treatment: 12 Lead EKG, Accucheck (95), Aging Room Hand, IVF, Other (Normal saline bolus) Associated signs and symptoms Body swelling as well as vaginal bleeding and a syncopal episode Past Medical History PAST MEDICAL HISTORY: Thyroid Past Medical History (Other): History of gestational diabetes Surgical History: AD TAKER History: No Pertinent AD TAKER History Family History Family History: Family hx of DM, Family hx of Cancer, Family hx of heart marek Social History Smoker: Non-Smoker Alcohol: Denies ETOH Use Drugs: Denies Drug Use Lives In: Home Physical Exam General Appearance: Mild Distress HEENT: Normal ENT Inspection, Pharynx Normal, TMs Normal Neck: Full Range of Motion, Non-Tender, Normal, Normal Inspection Respiratory: Chest Non-Tender, Lungs Clear, No Accessory Muscle Use, No Respiratory Distress, Normal Breath Sounds Cardiovascular: No Edema, No JVD, No Murmur, No Gallop, Normal Peripheral Pulses, Regular Rate/Rhythm Breast Exam: Deferred Gastrointestinal: No Organomegaly, Non Tender, No Pulsatile Mass, Normal Bowel Sounds, Soft Genitalia: Deferred Pelvic: Deferred Rectal: Deferred Extremities: No calf tenderness, Normal capillary refill, Normal inspection, Normal range of motion, Non-tender, No pedal edema Musculoskeletal : Apperance: Normal Neurologic: Alert, visual artist II-XII nml as Tested, Motor Weakness, Normal Affect, Normal Mood, No Sensory Deficits Cerebellar Function: Normal Reflexes: Normal Skin: Dry, Pallor, Warm Lymphatic: No Adenopathy Was a procedure done? Was a procedure done?: No Differential Dx Considerations may include: Generalized weakness, electrolyte imbalance, syncope, dehydration, anemia X-Ray, Labs, Meds, VS Vital Signs Date Time Temp Pulse Resp B/P (MAP) Pulse Ox O2 Delivery O2 Flow Rate FiO2 07/28/24 17:07 98.7 81 16 99/59 (72) 100 98.7 07/28/24 17:07 81 17 100 Room Air 07/28/24 15:08 98.1 70 15 103/53 (70) 97 98.1 Lab Test 07/28/24 15:13 Range/Units White Blood Count 7.4 4.4-10.8 10^3/uL Red Blood Count 4.31 4.0-5.20 10^6/uL Hemoglobin 11.8 L 12.2-16.2 g/dL Hematocrit 35.7 L 36.0-46.0 % Mean Corpuscular Volume 82.8 80.0-100.0 fL Mean Corpuscular Hemoglobin 27.4 L 28.0-32.0 pg Mean Corpuscular Hemoglobin Concent 33.1 32.0-36.0 g/dL Red Cell Distribution Width 13.6 11.8-14.3 % Platelet Count 358 140-450 10^3/uL Mean Platelet Volume 7.3 6.9-10.8 fL Neutrophils (%) (Auto) 76.8 37.0-80.0 % Lymphocytes (%) (Auto) 10.2 10.0-50.0 % Monocytes (%) (Auto) 8.7 0.0-12.0 % Eosinophils (%) (Auto) 3.8 0.0-7.0 % Basophils (%) (Auto) 0.5 0.0-2.0 % Neutrophils # (Auto) 5.6 1.6-8.6 10 ^3/uL Lymphocytes # (Auto) 0.7 0.4-5.4 10 ^3/uL Monocytes # (Auto) 0.6 0-1.3 10 ^3/uL Eosinophils # (Auto) 0.3 0-0.8 10 ^3/uL Basophils # (Auto) 0 0-0.2 10 ^3/uL Nucleated Red Blood Cells 0.0 % Sodium Level 143 136-145 mmol/L Potassium Level 4.0 3.5-5.1 mmol/L Chloride Level 110 H 98-107 mmol/L Carbon Dioxide Level 23 20-31 mmol/L Anion Gap 10 5-15 Blood Urea Nitrogen 12 9-23 mg/dL Creatinine 0.63 0.550-1.02 mg/dL Glomerular Filtration Rate Calc 123 >90 mL/min BUN/Creatinine Ratio 19.0 10.0-20.0 Serum Glucose 93 74-106 mg/dL Calcium Level 9.3 8.7-10.4 mg/dL Beta HCG, Quantitative 1.9 1.5-4.2 mIU/mL Current Medications Medications (Trade) Dose Ordered Sig/Debbie Route Start Time Stop Time Status Last Admin Sodium Chloride 500 ml @ 500 mls/hr Q1H ONCE IV 07/28/24 15:15 07/28/24 16:14 DC 07/28/24 16:42 TECHNIQUE: Multiple real-time grayscale transabdominal sonographic images along with color and duplex Doppler of the uterus and ovaries were obtained. IMPRESSION: Nonspecific thickened endometrium with small volume free fluid. Clinical correlation advised. At this time, the patient will be discharged The patient's CBC and chemistry panel seemed to be within normal range The patient did receive a bolus of normal saline at 500 cc We are repeating the patient's blood pressure. The patient will follow up with the primary care doctor Images Reviewed?: Images reviewed and evaluated by me Time of 1ST Reevaluation: 15:44 Reevaluation 1ST: Unchanged Patient Education/Counseling: Diagnosis, Treatment, Prognosis, Need For Follow Up Family Education/Counseling: No Family Present Departure 1 Departure Time of Disposition: 17:47 Impression: Primary Impression: Episode of syncope Qualified Codes: R55 - Syncope and collapse Disposition: 01 HOME / SELF CARE / HOMELESS Condition: Fair Discharged With: Self Critical Care Note Critical Care Time?: No Stability Stability form required: No Heart Score Heart Score: Heart Score Response (Comments) Value History N/A 0 EKG N/A 0 Age N/A 0 Risk Factors N/A 0 Troponin N/A 0 Total 0 I personally scribed for UTE BONE MD ([email or web address]) on 07/28/24 at 16:27. Electronically submitted by Trice Vela ([email or web address]). UTE BONE MD Jul 28, 2024 15:15
[2024-07-28 15:27] LABS: Basophils # (auto) 0 10 ^3/uL (0-0.2); Basophils % (auto) 0.5 % (0.0-2.0); Eosinophils # (auto) 0.3 10 ^3/uL (0-0.8); Eosinophils % (auto) 3.8 % (0.0-7.0); Hematocrit 35.7 % (36.0-46.0); Hemoglobin 11.8 g/dL (12.2-16.2); Lymphocytes # (auto) 0.7 10 ^3/uL (0.4-5.4); Lymphocytes % (auto) 10.2 % (10.0-50.0); Mean Corpuscular Hemoglobin 27.4 pg (28.0-32.0); Mean Corpuscular Hgb Conc. 33.1 g/dL (32.0-36.0); Mean Corpuscular Volume 82.8 fL (80.0-100.0); Monocytes # (auto) 0.6 10 ^3/uL (0-1.3); Monocytes % (auto) 8.7 % (0.0-12.0); Neutrophils # (auto) 5.6 10 ^3/uL (1.6-8.6); Neutrophils % (auto) 76.8 % (37.0-80.0); Platelet Count (auto) 358 10^3/uL (140-450); Red Blood Cells 4.31 10^6/uL (4.0-5.20); Red Cell Distribution Width 13.6 % (11.8-14.3); White Blood Cell 7.4 10^3/uL (4.4-10.8)
[2024-07-28 15:35] LABS: Sodium 143 mmol/L (136-145)
[2024-07-28 15:36] LABS: Anion Gap 10 (5-15); Carbon Dioxide 23 mmol/L (20-31)
[2024-07-28 15:37] LABS: Calcium 9.3 mg/dL (8.7-10.4)
[2024-07-28 15:38] LABS: Chloride 110 mmol/L (98-107)
[2024-07-28 15:42] LABS: Blood Urea Nitrogen 12 mg/dL (9-23); Glucose 93 mg/dL (74-106)
--- NOTE | 2024-07-28 16:13 | DVH ---
INDICATION: vag bleeding TECHNIQUE: Multiple real-time grayscale transabdominal sonographic images along with color and duplex Doppler of the uterus and ovaries were obtained. COMPARISON: None FINDINGS: The uterus measures 10.0 x 5.7 x 7.4 cm. The endometrial stripe measures 1.8 cm. Right ovary measures 2.0 x 1.2 x 1.7 cm with normal Doppler color flow Left ovary measures 2.1 x 1.8 x 1.6 cm with normal Doppler color flow IMPRESSION: Nonspecific thickened endometrium with small volume free fluid. Clinical correlation advised.
[2024-07-28] MEDS: SODIUM CHLORIDE 0.9% 500 ML IV ONE (16:42)
[2024-07-28] MEDS: SODIUM CHLORIDE 0.9% 1,000 ML IV ONE (18:57)
[2024-07-28] MEDS ORDERED: DOCUSATE SOD 100 MG CAP PO PRN (19:45)
[2024-07-28] MEDS ORDERED: TEMAZEPAM 15 MG CAP PO PRN (19:45)
[2024-07-28] MEDS ORDERED: ONDANSETRON HCL 4 MG/2 ML VIAL IV PRN (19:45)
[2024-07-28] MEDS ORDERED: LORazepam 0.5 MG TAB PO PRN (19:45)
--- NOTE | 2024-07-28 19:58 | DVHHP2 ---
History of Present Illness Reason for Visit: weakness syncope History of Present Illness 29-year-old female status post delivered on 510 patient was discharged on 07/08 states that upon discharge she has been having some issues with ankle swelling facial swelling and generalized weakness with complaints of diarrhea an d syncope patient states that she was given initially labetalol which did help with some of the swelling however when patient was at home she has severe weakness an episode of syncopal episode where 9 0 was called to bring her to the ED for evaluation patient has been complaining about increased amounts of vaginal bleeding and continued weakness initially in the ED patient shows signs of severe hypotension a CT scan of the chest was done to rule out PE Endocrine: Hyperthyroidism Family History: Cancer, DM, Hypertension Review of Systems Review of Systems Constitutional: denies: chills, diaphoresis, fatigue, fever, malaise, sweats, weakness, others EENTM: denies: blurred vision, double vision, ear bleeding, ear discharge, ear drainage, ear pain, ear ringing, eye pain, eye redness, hearing loss, mouth pain, mouth swelling, nasal discharge, nose bleeding, nose congestion, nose pain, photophobia, tearing, throat pain, throat swelling, voice changes, others Respiratory: denies: cough, hemoptysis, orthopnea, SOB at rest, shortness of breath, SOB with excertion, stridor, wheezing, others Cardiovascular: reports: chest pain; denies: dizzy spells, diaphoresis, Dyspnea on exertion, edema, irregular heart beat, left arm pain, lightheadedness, palpitations, PND, syncope, others Gastrointestinal: denies: abdomen distended, abdominal pain, blood streaked bowels, constipated, diarrhea, dysphagia, difficulty swallowing, hematemesis, melena, nausea, poor appetite, poor fluid intake, rectal bleeding, rectal pain, vomiting, others Genitourinary: denies: abnormal vagina bleeding, burning, dyspareunia, dysuria, flank pain, frequency, hematuria, incontinence, pain, , vagina discharge, urgency, others Neurological: denies: dizziness, fainting, headache, left sided numbness, left sided weakness, numbness, paresthesia, pre-existing deficit, right sided numbness, right sided weakness, seizure, speech problems, tingling, tremors, weakness, others Musculoskeletal: denies: back pain, gout, joint pain, joint swelling, muscle pain, muscle stiffness, neck pain, others Integumetry: denies: bruises, change in color, change in hair/nails, dryness, laceration, lesions, lumps, rash, wounds, others Allergic/Immunocompromised: denies: Difficulty Healing, Frequent Infections, Hives, Itching, others Hematologic/Lymphatic: denies: anemia, blood clots, easy bleeding, easy bruising, swollen glands, others Endocrine: denies: excessive hunger, excessive sweating, excessive thirst, excessive urination, flushing, intolerance to cold, intolerance to heat, unexplained weight gain, unexplained weight loss, others Psychiatric: denies: anxiety, bipolar disorder, depression, hopeless, panic disorder, schizophrenia, sleepless, suicidal, others All Other Systems: Reviewed and Negative Constitutional: Yes: Weakness Neurological: Weakness Allergies: Coded Allergies: NO KNOWN ALLERGIES (Unverified , 07/30/23) Medications Current Medications Medications Dose Ordered Sig/Debbie Route Start Time Stop Time Status Last Admin Dose Admin Sodium Chloride 1,000 ml @ 60 mls/hr [id number] IV 07/28/24 19:45 Lorazepam 0.5 mg Q6HP PRN PO 07/28/24 19:45 Docusate Sodium 100 mg BIDPRN PRN PO 07/28/24 19:45 Acetaminophen 650 mg Q6HP PRN PO 07/28/24 19:45 Temazepam 15 mg QHSP PRN PO 07/28/24 19:45 Ondansetron HCl 4 mg Q4HP PRN IV 07/28/24 19:45 Exam Vital Signs Vital Signs Date Time Temp Pulse Resp B/P (MAP) Pulse Ox O2 Delivery O2 Flow Rate FiO2 07/28/24 18:55 76 07/28/24 17:07 98.7 16 99/59 (72) 100 98.7 07/28/24 17:07 Room Air Exam General Appearance: Moderate Distress, Normal HEENT: Normal ENT Inspection, Pharynx Normal, TMs Normal Neck: Full Range of Motion, Non-Tender, Normal, Normal Inspection Respiratory: Chest Non-Tender, Lungs Clear, No Accessory Muscle Use, No Respiratory Distress, Normal Breath Sounds Cardiovascular: No Edema, No JVD, No Murmur, No Gallop, Normal Peripheral Pulses, Regular Rate/Rhythm Breast Exam: Deferred Gastrointestinal: No Organomegaly, Non Tender, No Pulsatile Mass, Normal Bowel Sounds, Soft Genitalia: Deferred Pelvic: Deferred Rectal: Deferred Extremities: No calf tenderness, Normal capillary refill, Normal inspection, Normal range of motion, Non-tender, No pedal edema Musculoskeletal : Apperance: Normal Neurologic: Alert, mixed livestock farm worker II-XII nml as Tested, No Motor Deficits, Normal Affect, Normal Mood, No Sensory Deficits Cerebellar Function: Normal Reflexes: Normal Skin: Dry, Normal Color, Warm Peripheral Pulses: 3+ Radial (R), 3+ Radial (L) Lymphatic: No Adenopathy Labs/Xrays Labs Test 07/28/24 15:13 Range/Units White Blood Count 7.4 4.4-10.8 10^3/uL Red Blood Count 4.31 4.0-5.20 10^6/uL Hemoglobin 11.8 L 12.2-16.2 g/dL Hematocrit 35.7 L 36.0-46.0 % Mean Corpuscular Volume 82.8 80.0-100.0 fL Mean Corpuscular Hemoglobin 27.4 L 28.0-32.0 pg Mean Corpuscular Hemoglobin Concent 33.1 32.0-36.0 g/dL Red Cell Distribution Width 13.6 11.8-14.3 % Platelet Count 358 140-450 10^3/uL Mean Platelet Volume 7.3 6.9-10.8 fL Neutrophils (%) (Auto) 76.8 37.0-80.0 % Lymphocytes (%) (Auto) 10.2 10.0-50.0 % Monocytes (%) (Auto) 8.7 0.0-12.0 % Eosinophils (%) (Auto) 3.8 0.0-7.0 % Basophils (%) (Auto) 0.5 0.0-2.0 % Neutrophils # (Auto) 5.6 1.6-8.6 10 ^3/uL Lymphocytes # (Auto) 0.7 0.4-5.4 10 ^3/uL Monocytes # (Auto) 0.6 0-1.3 10 ^3/uL Eosinophils # (Auto) 0.3 0-0.8 10 ^3/uL Basophils # (Auto) 0 0-0.2 10 ^3/uL Nucleated Red Blood Cells 0.0 % Sodium Level 143 136-145 mmol/L Potassium Level 4.0 3.5-5.1 mmol/L Chloride Level 110 H 98-107 mmol/L Carbon Dioxide Level 23 20-31 mmol/L Anion Gap 10 5-15 Blood Urea Nitrogen 12 9-23 mg/dL Creatinine 0.63 0.550-1.02 mg/dL Glomerular Filtration Rate Calc 123 >90 mL/min BUN/Creatinine Ratio 19.0 10.0-20.0 Serum Glucose 93 74-106 mg/dL Calcium Level 9.3 8.7-10.4 mg/dL Beta HCG, Quantitative 1.9 1.5-4.2 mIU/mL Assessment/Plan Assessment/Plan admit to telemetry Syncopal episodes in the setting of Hypotension Diarrhea And vaginal bleeding Ob evaluation No acute signs of infection at this time patient appears to be afebrile labs appear to be within normal range mild signs of anemia Status post on 07/06 Pelvic ultrasound completed no significant findings We will follow up with Ob evaluation CT angio remains pending to rule out PE Plan discussed with: Patient My Orders Orders - MARYAM ABBOTT MD Procedure Category Date Status Time Admit ADMIT 07/28/24 Transmitted 19:36 Code Status CODE 07/28/24 Transmitted 19:36 Vital Signs JUN 07/28/24 In Process 19:36 Review Orders With JUN 07/28/24 In Process Adm. 19:36 Regular Diet DIET 07/29/24 Transmitted Breakfast Sodium Chloride 0.9% PHA 07/28/24 In Process 19:45 Lorazepam Tablet PHA 07/28/24 In Process (Ativan Tablet) 19:45 Docusate Sodium PHA 07/28/24 In Process Capsule (Colace 19:45 Acetaminophen Tablet PHA 07/28/24 In Process (Tylenol Tablet) 19:45 Temazepam (Restoril) PHA 07/28/24 In Process 19:45 Notify Of Changes JUN 07/28/24 In Process From Base 19:36 Advance Directive JUN 07/28/24 In Process 19:36 Basic Metabolic Panel LAB 07/28/24 Logged 19:36 Complete Blood Count LAB 07/28/24 Logged 19:36 Patient Condition ORDERS 07/28/24 Transmitted 19:36 Allergies JUN 07/28/24 In Process 19:36 Ondansetron Hcl PHA 07/28/24 In Process (Zofran) 19:45 Notify Of Changes JUN 07/28/24 In Process From Base 19:36 Rhythm Strips Once JUN 07/28/24 In Process Every Shift 19:36 Oxygen By Nasal RT 07/28/24 Transmitted Cannula 19:36 Entertainment Production Professional For JUN 07/28/24 In Process 24 Hours 19:36 * Quill Machine Operator Consultation CONS 07/28/24 Transmitted 19:46 Date of Service: Jul 28, 2024 Billing Provider: MARYAM ABBOTT MD Common Visit Codes: [id number] INP/OBS CARE (HIGH) MARYAM ABBOTT MD Jul 28, 2024 19:58
[2024-07-28] MEDS: SODIUM CHLORIDE 0.9% 1,000 ML IV SCH (20:00)
[2024-07-28] MEDS: IOHEXOL 350 MG/ML 100ML IJ ONE ×2 (20:43→20:44)
[2024-07-28 21:00] LABS: Urine Bacteria None Seen /hpf (None Seen)
[2024-07-28 21:07] LABS: Urine Blood 3+ /uL (Negative); Urine Clarity Clear (Clear); Urine Color Light-Yellow (Yellow); Urine Mucus FEW (None Seen); Urine Protein, UAD Negative (Negative); Urine Specific Gravity 1.016 (1.001-1.035); Urine Squamous Epithelial Cell FEW /hpf (<5); Urine Urobilinogen Normal (Negative); Urine WBC 5 /HPF (0-5)
--- NOTE | 2024-07-28 21:15 | DVH ---
Procedure: CT CT ANGIO CHEST CONTRAST Reason for study/Clinical History: Syncope Comparison Study: None Exam Date: 07/28/2024 08:34 PM Radiation Dose Information: CT Dose: CTDI volume is 19.62 mGy. Dose-length product is 648.92 mGy*cm Contrast: Type of contrast: Omnipaque 350 Contrast inject: 100 cc Contrast wasted:0 TECHNIQUE: After the uneventful administration of intravenous contrast intravenously, CT imaging was performed through the chest. Coronal and sagittal reformations were performed by the technologist. FINDINGS: Lower Neck: Visualized portions of the thyroid gland are unremarkable. Aorta and Vasculature: Normal caliber of thoracic aorta. Lymph Nodes: No enlarged intrathoracic lymph nodes. Mediastinum: Heart size is normal. There is no pericardial effusion. The esophagus is unremarkable. Lungs: No focal consolidation, pleural effusion or significant pneumothorax. No suspicious pulmonary nodule or mass. Musculoskeletal: No acute osseous abnormality. Upper abdomen: Limited portions of the upper abdomen are unremarkable. IMPRESSION: 1. No findings of pulmonary emboli or pulmonary artery hypertension. 2. No pulmonary airspace disease or pleural effusions 3. All CT scans at this medical facility are performed using dose modulation techniques as appropriate to a performed exam including the following: Automated exposure control was utilized; adjustment of t he MA and/or KV according to patient size; and use of iterative reconstruction technique.
[2024-07-28 21:20] VITALS: BP 104/65; PULSE 61; RESP 16; TEMP 97.8; O2SAT 98
[2024-07-28] MEDS ORDERED: LABE200T33 PO (21:29)
[2024-07-28 21:33] VITALS: PULSE 61; RESP 16; O2SAT 98
[2024-07-29] VITALS (8 sets, daily range): BP systolic 94–121; BP diastolic 59–84; PULSE 62–94; RESP 16–18; TEMP 97.2–98.4; O2SAT 97–99
[2024-07-29] MEDS: ACETAMINOPHEN 325 MG TAB PO PRN (10:57)
--- NOTE | 2024-07-29 12:23 | DVHINCON2 ---
Date of service: Jul 29, 2024 Referring Physician hospitalist Reason for Consultation hypotension,vag bleeding History of Present Illness pt is s/p cs on 07/06 presented to er c/o dizziness and pt fainted. she was on labetolol for preeclampsia but demonstarted nl bp .her bleeding was normal and she had stopped bleeding till one day ago .pt reports light bleeding . her sono is normal Past Medical History hypothyroid Past Surgical History cs Family History na Social History na Patient Family History: DVT G8 MOTHER FH: pulmonary embolism G8 MOTHER Hypertension G8 FATHER Allergies: Coded Allergies: NO KNOWN ALLERGIES (Unverified , 07/30/23) Home Meds Reported Medications Labetalol Hcl (Labetalol Hcl) 200 Mg Tab, 1 TAB PO BID, #60 TAB 5 Refills 07/28/24 Current Medications Current Medications Medications (Trade) Dose Ordered Sig/Debbie Route PRN Reason Start Time Stop Time Status Last Admin Sodium Chloride 1,000 ml @ 60 mls/hr [id number] IV 07/28/24 19:45 07/28/24 20:00 Lorazepam (Ativan Tablet) 0.5 mg Q6HP PRN PO ANXIETY 07/28/24 19:45 Docusate Sodium (Colace Capsule) 100 mg BIDPRN PRN PO FOR CONSTIPATION 07/28/24 19:45 Acetaminophen (Tylenol Tablet) 650 mg Q6HP PRN PO PAIN SCALE 1-3 OR TEMP>100.4 07/28/24 19:45 07/29/24 10:57 Temazepam (Restoril) 15 mg QHSP PRN PO FOR INSOMNIA 07/28/24 19:45 Ondansetron HCl (Zofran) 4 mg Q4HP PRN IV NAUSEA / VOMITING 07/28/24 19:45 Review of Systems Constitutional: no fever, chill, weight loss,pos weakness HEENT: no eye pain, no hearing loss, no oral lesion, no scleral icterus Heart: no chest pain, no chest pressure Lung: no cough, no dyspnea with exertion Abdomen: see HPI : no pain with urination, normal appearing urine Musculoskeletal: no joint pain, no muscle pain Neurological: no seizure, no loss of sensation, pos weakness in extremities Pysch: no depression, no anxiety Derm: no rash, no jaundice Vital Signs Vital Signs Date Time Temp Pulse Resp B/P (MAP) Pulse Ox O2 Delivery O2 Flow Rate FiO2 07/29/24 09:00 98.0 62 16 94/66 (75) 97 98.0 07/29/24 08:00 Room Air* 0 21 Physical Exam SKIN: [nl] HEENT: [nl] NECK: [nl] CARDIAC: [rrr] PULMONARY: [cta abd -soft,nt not distended pelvic- min bleeding ,uterus 10 wks size Labs/Diagnostic Data Labs Test 07/28/24 20:50 07/28/24 15:13 Range/Units Urine Color Light-yellow Yellow Urine Clarity Clear Clear Urine pH 6.0 5.0-9.0 Urine Specific [place] 1.016 1.001-1.035 Urine Protein Negative Negative Urine Ketones 1+ H Negative Urine Blood 3+ H Negative /uL Urine Nitrite Negative Negative Urine Bilirubin Negative Negative Urine Urobilinogen Normal Negative mg/dL Urine Leukocyte Esterase Negative Negative /uL Urine RBC 34 0 - 4 /hpf Urine Microscopic WBC 5 0-5 /HPF Urine Squamous Epithelial Cells Few <5 /hpf Urine Bacteria None seen None Seen /hpf Urine Mucus Few None Seen Urine Glucose Normal Normal mg/dL White Blood Count 7.4 4.4-10.8 10^3/uL Red Blood Count 4.31 4.0-5.20 10^6/uL Hemoglobin 11.8 L 12.2-16.2 g/dL Hematocrit 35.7 L 36.0-46.0 % Mean Corpuscular Volume 82.8 80.0-100.0 fL Mean Corpuscular Hemoglobin 27.4 L 28.0-32.0 pg Mean Corpuscular Hemoglobin Concent 33.1 32.0-36.0 g/dL Red Cell Distribution Width 13.6 11.8-14.3 % Platelet Count 358 140-450 10^3/uL Mean Platelet Volume 7.3 6.9-10.8 fL Neutrophils (%) (Auto) 76.8 37.0-80.0 % Lymphocytes (%) (Auto) 10.2 10.0-50.0 % Monocytes (%) (Auto) 8.7 0.0-12.0 % Eosinophils (%) (Auto) 3.8 0.0-7.0 % Basophils (%) (Auto) 0.5 0.0-2.0 % Neutrophils # (Auto) 5.6 1.6-8.6 10 ^3/uL Lymphocytes # (Auto) 0.7 0.4-5.4 10 ^3/uL Monocytes # (Auto) 0.6 0-1.3 10 ^3/uL Eosinophils # (Auto) 0.3 0-0.8 10 ^3/uL Basophils # (Auto) 0 0-0.2 10 ^3/uL Nucleated Red Blood Cells 0.0 % Sodium Level 143 136-145 mmol/L Potassium Level 4.0 3.5-5.1 mmol/L Chloride Level 110 H 98-107 mmol/L Carbon Dioxide Level 23 20-31 mmol/L Anion Gap 10 5-15 Blood Urea Nitrogen 12 9-23 mg/dL Creatinine 0.63 0.550-1.02 mg/dL Glomerular Filtration Rate Calc 123 >90 mL/min BUN/Creatinine Ratio 19.0 10.0-20.0 Serum Glucose 93 74-106 mg/dL Calcium Level 9.3 8.7-10.4 mg/dL Beta HCG, Quantitative 1.9 1.5-4.2 mIU/mL Primary Diagnosis syncopal episode due to low bp 2' Diagnosis/Comorbidities s/p cs -stable Plan dc bp med supportive care no further need for postop bleeding appears to be normal fu out pt after dc will sign off thank you Plan discussed with: Patient Visit Coding OBGYN Date of Service: Jul 29, 2024 Billing Provider: LISA HARRIS DO NARRATIVE WRITER Common Visit Codes: [id number] OBS CARE (HIGH) NARRATIVE WRITER Consultation Codes: [id number] CONSULT <110MIN LISA HARRIS DO Jul 29, 2024 12:23
--- NOTE | 2024-07-29 12:59 | DVHPN2 ---
Subjective Seen and examined at bedside, patient is c/o watery diahrrea for 3 days. BP more stable today. Off Labetalol for 3 days. Changes from previous H/P or p: No Changes Objective Vitals Vital Signs Date Time Temp Pulse Resp B/P (MAP) Pulse Ox O2 Delivery O2 Flow Rate FiO2 07/29/24 09:00 98.0 62 16 94/66 (75) 97 98.0 07/29/24 08:00 Room Air* 0 21 Intake/Output Intake and Output 07/29/24 07:00 Intake Total 2030 ml Balance 2030 ml Intake Oral 970 ml IV Total 1060 ml # Voids 3 # Bowel Movements 3 General Appearance: Alert, Oriented X3, Cooperative HEENT: Atraumatic Lungs: Clear to auscultation Cardiovascular: Regular rate, Normal S1, Normal S2 Abdomen: Normal bowel sounds, Soft Psych/Mental Status: Mental status NL Medications Current Medications Medications Dose Ordered Sig/Debbie Route Start Time Stop Time Status Last Admin Dose Admin Sodium Chloride 1,000 ml @ 60 mls/hr [id number] IV 07/28/24 19:45 07/28/24 20:00 60 MLS/HR Lorazepam 0.5 mg Q6HP PRN PO 07/28/24 19:45 Docusate Sodium 100 mg BIDPRN PRN PO 07/28/24 19:45 Acetaminophen 650 mg Q6HP PRN PO 07/28/24 19:45 07/29/24 10:57 650 MG Temazepam 15 mg QHSP PRN PO 07/28/24 19:45 Ondansetron HCl 4 mg Q4HP PRN IV 07/28/24 19:45 Laboratory Results Laboratory Tests 07/28/24 15:13 Chemistry Test 07/28/24 15:13 Calcium Level 9.3 mg/dL (8.7-10.4) Urinalysis Test 07/28/24 20:50 Urine Color Light-yellow (Yellow) Urine Clarity Clear (Clear) Urine pH 6.0 (5.0-9.0) Urine Specific [place] 1.016 (1.001-1.035) Urine Protein Negative (Negative) Urine Ketones 1+ (Negative) H Urine Blood 3+ /uL (Negative) H Urine Nitrite Negative (Negative) Urine Bilirubin Negative (Negative) Urine Urobilinogen Normal mg/dL (Negative) Urine Leukocyte Esterase Negative /uL (Negative) Urine RBC 34 /hpf (0 - 4) Urine Microscopic WBC 5 /HPF (0-5) Urine Squamous Epithelial Cells Few /hpf (<5) Urine Bacteria None seen /hpf (None Seen) Urine Mucus Few (None Seen) Urine Glucose Normal mg/dL (Normal) Assessment/Plan Assessment/Plan # Syncope due to Hypotension - DC Labetalol due to preeclampsia - Monitor BP # Diahrrea, r/o infectious causes - Stool sample - Probiotics # Recent Plan discussed with: Patient Date of Service: Jul 29, 2024 Billing Provider: GEORGE MCKEON MD Common Visit Codes: [id number] INP/OBS CARE(HIGH) GEORGE MCKEON MD Jul 29, 2024 12:59
[2024-07-29 14:38] LABS: Free T4 (Free Thyroxine) 0.93 ng/dL (0.89-1.76)
[2024-07-29] MEDS ORDERED: LOPERAMIDE HCL 2 MG CAP/TAB PO PRN (15:15)
[2024-07-29] MEDS: LOPERAMIDE HCL 2 MG CAP/TAB PO ONE (18:24)
[2024-07-29] MEDS: FLORASTOR (S. BOULARDII) 250 MG CAP PO SCH (21:22)
[2024-07-30 01:00] VITALS: BP 125/76; PULSE 79; RESP 16; TEMP 98.3; O2SAT 97
[2024-07-30 05:00] VITALS: BP 109/72; PULSE 67; RESP 16; TEMP 97.9; O2SAT 98
[2024-07-30 08:00] VITALS: PULSE 91; RESP 18
[2024-07-30 08:19] VITALS: BP 119/77; PULSE 61; RESP 18; TEMP 98.2; O2SAT 98
[2024-07-30 12:38] VITALS: BP_SYST 109; BP_SYST 189; BP_DIAS 106; BP_DIAS 78; PULSE 56; PULSE 85; RESP 18; RESP 20; TEMP 97.6; O2SAT 96; O2SAT 98
--- NOTE | 2024-07-30 13:36 | DVHDS2 ---
Discharge Summary Date of Admission Jul 28, 2024 at 19:36 Date of Discharge: Jul 30, 2024 Labs/Diagnostic Data: Laboratory Results Test 07/29/24 14:09 07/29/24 05:15 07/28/24 20:50 07/28/24 15:13 Vitamin B12 Level 533 pg/mL (211-911) Vitamin D 25-Hydroxy 29.1 ng/mL (30.0-100) Thyroid Stimulating Hormone (TSH) 0.26 uIU/mL (0.55-4.78) Free Thyroxine (T4) Calculated 0.93 ng/dL (0.89-1.76) Stool for White Cells None seen Urine Color Light-yellow (Yellow) Urine Clarity Clear (Clear) Urine pH 6.0 (5.0-9.0) Urine Specific [place] 1.016 (1.001-1.035) Urine Protein Negative (Negative) Urine Ketones 1+ (Negative) Urine Blood 3+ /uL (Negative) Urine Nitrite Negative (Negative) Urine Bilirubin Negative (Negative) Urine Urobilinogen Normal mg/dL (Negative) Urine Leukocyte Esterase Negative /uL (Negative) Urine RBC 34 /hpf (0 - 4) Urine Microscopic WBC 5 /HPF (0-5) Urine Squamous Epithelial Cells Few /hpf (<5) Urine Bacteria None seen /hpf (None Seen) Urine Mucus Few (None Seen) Urine Glucose Normal mg/dL (Normal) White Blood Count 7.4 10^3/uL (4.4-10.8) Red Blood Count 4.31 10^6/uL (4.0-5.20) Hemoglobin 11.8 g/dL (12.2-16.2) Hematocrit 35.7 % (36.0-46.0) Mean Corpuscular Volume 82.8 fL (80.0-100.0) Mean Corpuscular Hemoglobin 27.4 pg (28.0-32.0) Mean Corpuscular Hemoglobin Concent 33.1 g/dL (32.0-36.0) Red Cell Distribution Width 13.6 % (11.8-14.3) Platelet Count 358 10^3/uL (140-450) Mean Platelet Volume 7.3 fL (6.9-10.8) Neutrophils (%) (Auto) 76.8 % (37.0-80.0) Lymphocytes (%) (Auto) 10.2 % (10.0-50.0) Monocytes (%) (Auto) 8.7 % (0.0-12.0) Eosinophils (%) (Auto) 3.8 % (0.0-7.0) Basophils (%) (Auto) 0.5 % (0.0-2.0) Neutrophils # (Auto) 5.6 10 ^3/uL (1.6-8.6) Lymphocytes # (Auto) 0.7 10 ^3/uL (0.4-5.4) Monocytes # (Auto) 0.6 10 ^3/uL (0-1.3) Eosinophils # (Auto) 0.3 10 ^3/uL (0-0.8) Basophils # (Auto) 0 10 ^3/uL (0-0.2) Nucleated Red Blood Cells 0.0 % Sodium Level 143 mmol/L (136-145) Potassium Level 4.0 mmol/L (3.5-5.1) Chloride Level 110 mmol/L (98-107) Carbon Dioxide Level 23 mmol/L (20-31) Anion Gap 10 (5-15) Blood Urea Nitrogen 12 mg/dL (9-23) Creatinine 0.63 mg/dL (0.550-1.02) Glomerular Filtration Rate Calc 123 mL/min (>90) BUN/Creatinine Ratio 19.0 (10.0-20.0) Serum Glucose 93 mg/dL (74-106) Calcium Level 9.3 mg/dL (8.7-10.4) Beta HCG, Quantitative 1.9 mIU/mL (1.5-4.2) Other Laboratory Tests 07/28/24 15:13 Brief Hx & Hospital Course: Patient was on Labetalol for Preeclampsia at home, had hypotension, now resolved. Will DC Labetalol and monitor BP at home. Diarrhea resolved, no C- Diff. Condition at Discharge: Stable Final Diagnosis/Problems List # Syncope due to Hypotension - DC Labetalol due to preeclampsia - Monitor BP # Diahrrea, ruled out infectious causes # Recent Discharge Disposition: Home Discharge Instruct/Medications Diet: Regular Activity: Light activity Activity comment: Monitor Blood Pressure and record readings to take to PCP office Follow Up/Referral: PCP in 1 week Medications: Dc Labetalol Discharge Statement: "Patient was advised to return to the ER or call 911 if any headaches, dizziness, shortness of breath, chest pain, abdominal pain, bleeding, fevers, or worsening of medical condition. Patient was counseled about treatment plan, medications, possible side effects, patientverbalized understanding. All questions were answered to the best of my ability. This discharge took greater then 30 minutes in planning, reviewing documentation, counseling the patient, and discussing with other team members." ASSESSMENT ASSESSMENT Assessment Date of Service: Jul 30, 2024 Billing Provider: GEORGE MCKEON MD Common Visit Codes: 78653-MTO/OBS DISCH DAY >30min GEORGE MCKEON MD Jul 30, 2024 13:36
== END 2024-07-30 15:30 | disposition home or self-care (01) | DRG 776 ==
LOC: ER 15:00 → EDBD 15:00 → OVERFLOW 19:36 → TELE-EAST 21:20 → EAST 07-29 22:19
PROVIDERS: ADMIT Internal Medicine; ATTEND Internal Medicine
DX: O99.43 Diseases of the circulatory system complicating the puerperium (principal); I95.9 Hypotension, unspecified; N93.9 Abnormal uterine and vaginal bleeding, unspecified; E05.90 Thyrotoxicosis, unspecified without thyrotoxic crisis or storm; O99.285 Endocrine, nutritional and metabolic diseases complicating the puerperium; O90.89 Other complications of the puerperium, not elsewhere classified; O14.95 Unspecified pre-eclampsia, complicating the puerperium; Z79.891 Long term (current) use of opiate analgesic; Z79.899 Other long term (current) drug therapy; Z79.4 Long term (current) use of insulin; Z79.1 Long term (current) use of non-steroidal anti-inflammatories (NSAID); Z86.32 Personal history of gestational diabetes; Z83.3 Family history of diabetes mellitus; Z82.49 Family history of ischemic heart disease and other diseases of the circulatory system
CPT/HCPCS: 36415; 71275; 76856; 80048; 81001; 82306; 82607; 84439; 84443; 84702; 85025; 85048; 86850; 86900; 86901; 87045; 87081; 87493; 96360; 96361; G0378

== ENCOUNTER 2024-08-13 19:59 | Emergency (ER) | payer BC, MEDICAID ==
[~2024-08-13] VITALS: Ht 152.4 cm; Wt 58.6 kg
[~2024-08-13 19:59] MED LIST changes: -DOCU-94 PO; -FERR1TAB31 PO; -HYDR-4072 PO; -IBUP-1456 PO; -INSU100S6 SC; +LABE200T33 PO; -PREN-129 OR
[2024-08-13] MEDS ORDERED: CEPH500C PO (21:03)
[2024-08-13 21:15] VITALS: BP 124/78; PULSE 94; RESP 20; TEMP 99.2; O2SAT 99
--- NOTE | 2024-08-13 21:26 | ED.PDOC ---
History of Present Illness(SKN HPI Comments 29y F who presents to the ED for chief complaint of wound check. Pt states she had at on 2024 and states she has been having pain and minimal drainage over the past 2 days. Pt states the drainage is by the RLQ by her scar. Pt has no associated redness, swelling or edema noted. Pt has noted minimal exudative incision by the RLQ. Pt is with this being her only . Pt otherwise has noted stable vitals in the ED. Pt denies any other symptoms at this time. 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 History Family History Family History: Family hx of DM, Family hx of Cancer, Family hx of heart marek Social History Smoker: Non-Smoker Alcohol: Denies ETOH Use Drugs: Denies Drug Use Lives In: Home Constitutional: denies: chills, diaphoresis, fatigue, fever, malaise, sweats, weakness, others EENTM: denies: blurred vision, double vision, ear bleeding, ear discharge, ear drainage, ear pain, ear ringing, eye pain, eye redness, hearing loss, mouth pain, mouth swelling, nasal discharge, nose bleeding, nose congestion, nose pain, photophobia, tearing, throat pain, throat swelling, voice changes, others Respiratory: denies: cough, hemoptysis, orthopnea, SOB at rest, shortness of breath, SOB with excertion, stridor, wheezing, others Cardiovascular: denies: chest pain, dizzy spells, diaphoresis, Dyspnea on exertion, edema, irregular heart beat, left arm pain, lightheadedness, palpitations, PND, syncope, others Gastrointestinal: denies: abdomen distended, abdominal pain, blood streaked bowels, constipated, diarrhea, dysphagia, difficulty swallowing, hematemesis, melena, nausea, poor appetite, poor fluid intake, rectal bleeding, rectal pain, vomiting, others Genitourinary: denies: abnormal vagina bleeding, burning, dyspareunia, dysuria, flank pain, frequency, hematuria, incontinence, pain, , vagina discharge, urgency, others Neurological: denies: dizziness, fainting, headache, left sided numbness, left sided weakness, numbness, paresthesia, pre-existing deficit, right sided numbness, right sided weakness, seizure, speech problems, tingling, tremors, weakness, others Musculoskeletal: denies: back pain, gout, joint pain, joint swelling, muscle pain, muscle stiffness, neck pain, others Integumetry: reports: wounds (RLQ); denies: bruises, change in color, change in hair/nails, dryness, laceration, lesions, lumps, rash, others Allergic/Immunocompromised: denies: Difficulty Healing, Frequent Infections, Hives, Itching, others Hematologic/Lymphatic: denies: anemia, blood clots, easy bleeding, easy bruising, swollen glands, others Endocrine: denies: excessive hunger, excessive sweating, excessive thirst, excessive urination, flushing, intolerance to cold, intolerance to heat, unexplained weight gain, unexplained weight loss, others Psychiatric: denies: anxiety, bipolar disorder, depression, hopeless, panic disorder, schizophrenia, sleepless, suicidal, others All Other Systems: Reviewed and Negative Physical Exam General Appearance: No Apparent Distress, Normal HEENT: Normal ENT Inspection, Pharynx Normal, TMs Normal Neck: Full Range of Motion, Non-Tender, Normal, Normal Inspection Respiratory: Chest Non-Tender, Lungs Clear, No Accessory Muscle Use, No Respiratory Distress, Normal Breath Sounds Cardiovascular: No Edema, No JVD, No Murmur, No Gallop, Normal Peripheral Pulses, Regular Rate/Rhythm Breast Exam: Deferred Gastrointestinal: RLQ (RLQ soft to palpation) Genitalia: Deferred Pelvic: Deferred Rectal: Deferred Extremities: No calf tenderness, Normal capillary refill, Normal inspection, Normal range of motion, Non-tender, No pedal edema Musculoskeletal : Apperance: Normal Neurologic: Alert, senior statistical programmer II-XII nml as Tested, No Motor Deficits, Normal Affect, Normal Mood, No Sensory Deficits Cerebellar Function: Normal Reflexes: Normal Skin: Other (pinpoint RLQ incison by ) Lymphatic: No Adenopathy Was a procedure done? Was a procedure done?: No Differential Diagnosis (INTG) Abscess: Abscess, Bacteremia, Cellulitis X-Ray, Labs, Meds, VS Vital Signs Date Time Temp Pulse Resp B/P (MAP) Pulse Ox O2 Delivery O2 Flow Rate FiO2 08/13/24 21:15 99.2 94 20 124/78 (93) 99 99.2 X-Ray, Labs, Meds, VS Comment Imaging: X-rays and CT scans were reviewed and interpreted by this provider, imaging shows no fractures and no pathological disease. Pending radiology review. Laboratory: Labs reviewed and interpreted by this provider. No significant abnormalities noted. Patient has prior medical visits reviewed. Med reconciliation performed Vital signs reviewed Time of 1ST Reevaluation: 22:00 Reevaluation 1ST: Unchanged Patient Education/Counseling: Diagnosis, Treatment, Need For Follow Up (Follow up in two days for wound recheck.) Family Education/Counseling: No Family Present SEPSIS Sepsis Screen Orders/Vitals/Labs Vital Signs Date Time Temp Pulse Resp B/P (MAP) Pulse Ox O2 Delivery O2 Flow Rate FiO2 08/13/24 21:15 99.2 94 20 124/78 (93) 99 99.2 Departure 1 Departure Time of Disposition: 21:52 Impression: Primary Impression: section wound complication Disposition: HOME / SELF CARE / HOMELESS Condition: Fair e-Prescriptions Cephalexin Monohydrate (Cephalexin) 500 Mg Cap 1 CAP PO QID for 10 Days, #40 CAP Prov: MIRIAM BARLOW 08/13/24 Discharged With: Self Critical Care Note Critical Care Time?: No Stability Stability form required: No Heart Score Heart Score: Heart Score Response (Comments) Value History N/A 0 EKG N/A 0 Age N/A 0 Risk Factors N/A 0 Troponin N/A 0 Total 0 I personally scribed for MIRIAM BARLOW ([facility]) on 08/13/24 at 21:26. Electronically submitted by Trice LOPEZ). MIRIAM BARLOW Aug 13, 2024 21:26
== END 2024-08-13 23:05 | disposition home or self-care (01) ==
LOC: ER 19:59
DX: O90.0 Disruption of cesarean delivery wound (principal); Z37.9 Outcome of delivery, unspecified; Z79.899 Other long term (current) drug therapy

== ENCOUNTER 2024-12-03 10:29 | Emergency (ER) | payer BC, MEDICAID ==
[~2024-12-03] VITALS: Ht 165.1 cm; Wt 64.3 kg
[~2024-12-03 10:29] MED LIST changes: +CEPH500C PO
--- NOTE | 2024-12-03 11:43 | ED.PDOC ---
THERMOFORMING OPERATOR HPI Comments 29 year old female presents to the ED with a chief complaint of vaginal bleeding onset 3 days. Patient states she is currently 4 months post , OBGYN Dr. Callejas, had a section and tubal ligation done. Patient began menstrual cycle 3 days ago, noticed bleeding is heavy with clots, is changing tampon, pad and disposable underwear about every hour. Was told by OBGYN to follow up with PCP, no appointment available. PMhx thyroid disease. Denies fever, chills, headache, dizziness, abdominal pain, nausea, vomiting, diarrhea,blurred vision. No other symptoms or modifying factors present at this time. Chief Complaint: Vaginal Bleed Time Seen by MD: 11:30 Reviewed Notes: Medications, Allergies Allergies: Coded Allergies: NO KNOWN ALLERGIES (Unverified , 07/30/23) Home Meds Active Scripts Cephalexin Monohydrate (Cephalexin) 500 Mg Cap, 1 CAP PO QID for 10 Days, #40 CAP Prov:MIRIAM BARLOW 08/13/24 Reported Medications Labetalol Hcl (Labetalol Hcl) 200 Mg Tab, 1 TAB PO BID, #60 TAB 5 Refills 07/28/24 Information Source: Patient Mode of Arrival: Ambulatory Timing: Days Prehospital treatment: None Severity: Moderate Vaginal Discharge: None Vaginal Lesions: None Bleeding Quality: Clotted Vaginal Mass: None Onset Of Mass/Bleeding: Menstrual Last Consensual [place]: Unknown Associated Signs and Symptoms: Vaginal Bleeding Past Medical History PAST MEDICAL HISTORY: Thyroid Surgical History: , Tubal Ligation PROMOTIONS REPRESENTATIVE History: No Pertinent PROMOTIONS REPRESENTATIVE History Family History Family History: Family hx of DM, Family hx of Cancer, Family hx of heart marek Social History Smoker: Non-Smoker Alcohol: Denies ETOH Use Drugs: Denies Drug Use Lives In: Home Constitutional: denies: chills, diaphoresis, fatigue, fever, malaise, sweats, weakness, others EENTM: denies: blurred vision, double vision, ear bleeding, ear discharge, ear drainage, ear pain, ear ringing, eye pain, eye redness, hearing loss, mouth pain, mouth swelling, nasal discharge, nose bleeding, nose congestion, nose pain, photophobia, tearing, throat pain, throat swelling, voice changes, others Respiratory: denies: cough, hemoptysis, orthopnea, SOB at rest, shortness of breath, SOB with excertion, stridor, wheezing, others Cardiovascular: denies: chest pain, dizzy spells, diaphoresis, Dyspnea on exertion, edema, irregular heart beat, left arm pain, lightheadedness, palpitations, PND, syncope, others Gastrointestinal: denies: abdomen distended, abdominal pain, blood streaked bowels, constipated, diarrhea, dysphagia, difficulty swallowing, hematemesis, melena, nausea, poor appetite, poor fluid intake, rectal bleeding, rectal pain, vomiting, others Genitourinary: reports: abnormal vagina bleeding; denies: burning, dyspareunia, dysuria, flank pain, frequency, hematuria, incontinence, pain, , vagina discharge, urgency, others Neurological: denies: dizziness, fainting, headache, left sided numbness, left sided weakness, numbness, paresthesia, pre-existing deficit, right sided numbness, right sided weakness, seizure, speech problems, tingling, tremors, weakness, others Musculoskeletal: denies: back pain, gout, joint pain, joint swelling, muscle pain, muscle stiffness, neck pain, others Integumetry: denies: bruises, change in color, change in hair/nails, dryness, laceration, lesions, lumps, rash, wounds, others Allergic/Immunocompromised: denies: Difficulty Healing, Frequent Infections, Hives, Itching, others Hematologic/Lymphatic: denies: anemia, blood clots, easy bleeding, easy bruising, swollen glands, others Endocrine: denies: excessive hunger, excessive sweating, excessive thirst, excessive urination, flushing, intolerance to cold, intolerance to heat, unexplained weight gain, unexplained weight loss, others Psychiatric: denies: anxiety, bipolar disorder, depression, hopeless, panic disorder, schizophrenia, sleepless, suicidal, others All Other Systems: Reviewed and Negative Physical Exam General Appearance: No Apparent Distress, Normal HEENT: Normal ENT Inspection, Pharynx Normal, TMs Normal Neck: Full Range of Motion, Non-Tender, Normal, Normal Inspection Respiratory: Chest Non-Tender, Lungs Clear, No Accessory Muscle Use, No Re spiratory Distress, Normal Breath Sounds Cardiovascular: No Edema, No JVD, No Murmur, No Gallop, Normal Peripheral Pulses, Regular Rate/Rhythm Breast Exam: Deferred Gastrointestinal: No Organomegaly, Non Tender, No Pulsatile Mass, Normal Bowel Sounds, Soft Genitalia: Deferred Pelvic: Deferred Rectal: Deferred Extremities: No calf tenderness, Normal capillary refill, Normal inspection, Normal range of motion, Non-tender, No pedal edema Musculoskeletal : Apperance: Normal Neurologic: Alert, naval police coxswain II-XII nml as Tested, No Motor Deficits, Normal Affect, Normal Mood, No Sensory Deficits Cerebellar Function: Normal Reflexes: Normal Skin: Dry, Normal Color, Warm Lymphatic: No Adenopathy Was a procedure done? Was a procedure done?: No Differential Diagnosis (PROMOTIONS REPRESENTATIVE) Vaginal Bleeding: Hormonal, Menorrhagia, Menstrual Bleeding, UTI X-Ray, Labs, Meds, VS Vital Signs Date Time Temp Pulse Resp B/P (MAP) Pulse Ox O2 Delivery O2 Flow Rate FiO2 12/03/24 12:32 Room Air* 0 21 12/03/24 12:32 98.0 85 16 130/78 (95) 100 98.0 12/03/24 10:34 97.4 103 19 120/71 97 97.4 Lab Test 12/03/24 11:46 12/03/24 11:07 Range/Units Urine Color Colorless Yellow Urine Clarity Turbid H Clear Urine pH 7.0 5.0-9.0 Urine Specific [place] 1.019 1.001-1.035 Urine Protein Negative Negative Urine Ketones Negative Negative Urine Blood 3+ H Negative /uL Urine Nitrite Negative Negative Urine Bilirubin Negative Negative Urine Urobilinogen Normal Negative mg/dL Urine Leukocyte Esterase Trace Negative /uL Urine RBC 3592 0 - 4 /hpf Urine Microscopic WBC 9 H 0-5 /HPF Urine Squamous Epithelial Cells Few <5 /hpf Urine Bacteria None seen None Seen /hpf Urine Glucose Normal Normal mg/dL Urine Test Negative Negative White Blood Count 6.5 4.4-10.8 10^3/uL Red Blood Count 4.37 4.0-5.20 10^6/uL Hemoglobin 12.3 12.2-16.2 g/dL Hematocrit 36.4 36.0-46.0 % Mean Corpuscular Volume 83.2 80.0-100.0 fL Mean Corpuscular Hemoglobin 28.0 28.0-32.0 pg Mean Corpuscular Hemoglobin Concent 33.7 32.0-36.0 g/dL Red Cell Distribution Width 14.5 H 11.8-14.3 % Platelet Count 391 140-450 10^3/uL Mean Platelet Volume 7.1 6.9-10.8 fL Neutrophils (%) (Auto) 67.3 37.0-80.0 % Lymphocytes (%) (Auto) 22.4 10.0-50.0 % Monocytes (%) (Auto) 8.0 0.0-12.0 % Eosinophils (%) (Auto) 1.5 0.0-7.0 % Basophils (%) (Auto) 0.8 0.0-2.0 % Neutrophils # (Auto) 4.4 1.6-8.6 10 ^3/uL Lymphocytes # (Auto) 1.4 0.4-5.4 10 ^3/uL Monocytes # (Auto) 0.5 0-1.3 10 ^3/uL Eosinophils # (Auto) 0.1 0-0.8 10 ^3/uL Basophils # (Auto) 0 0-0.2 10 ^3/uL Nucleated Red Blood Cells 0.0 % Sodium Level 140 136-145 mmol/L Potassium Level 4.3 3.5-5.1 mmol/L Chloride Level 104 98-107 mmol/L Carbon Dioxide Level 28 20-31 mmol/L Anion Gap 8 5-15 Blood Urea Nitrogen 15 9-23 mg/dL Creatinine 0.73 0.550-1.02 mg/dL Glomerular Filtration Rate Calc 114 >90 mL/min BUN/Creatinine Ratio 20.5 H 10.0-20.0 Serum Glucose 100 74-106 mg/dL Calcium Level 9.3 8.7-10.4 mg/dL Time of 1ST Reevaluation: 12:00 Reevaluation 1ST: Unchanged Patient Education/Counseling: Diagnosis, Treatment, Prognosis Family Education/Counseling: No Family Present Departure 1 Departure Time of Disposition: 14:12 (Patient with heavy periods. Will discharge home.) Impression: Primary Impression: Heavy periods Disposition: 01 HOME / SELF CARE / HOMELESS Condition: Stable Referrals: LISA CALLEJAS DO Additional Instructions: Your blood work was benign today. You were prescribed Lysteda today. This may help slow down your bleeding. Please take as directed. You should follow up with Dr. Britta pereira. If your symptoms worsen or you have any other concerns then please return to the ER. e-Prescriptions Tranexamic Acid (TRANEXAMIC ACID) 650 Mg Tab 650 MG PO TID for 5 Days, #15 TAB Prov: BETTY SCHAFFER MD 12/03/24 Critical Care Note Critical Care Time?: No Stability Stability form required: No Heart Score Heart Score: Heart Score Response (Comments) Value History N/A 0 EKG N/A 0 Age N/A 0 Risk Factors N/A 0 Troponin N/A 0 Total 0 I personally scribed for BETTY SCHAFFER MD ([email or web address]) on 12/03/24 at 11:43. Electronically submitted by Lisa Kennedy ([email or web address]). BETTY SCHAFFER MD Dec 03, 2024 11:43
[2024-12-03 11:56] LABS: Urine Protein, UAD Negative (Negative)
[2024-12-03 12:09] LABS: Hematocrit 36.4 % (36.0-46.0); Hemoglobin 12.3 g/dL (12.2-16.2); Mean Corpuscular Hemoglobin 28.0 pg (28.0-32.0); Mean Corpuscular Volume 83.2 fL (80.0-100.0); Nucleated Red Blood Cells % 0.0 %
[2024-12-03 12:17] LABS: Anion Gap 8 (5-15); Carbon Dioxide 28 mmol/L (20-31); Chloride 104 mmol/L (98-107); Potassium 4.3 mmol/L (3.5-5.1); Sodium 140 mmol/L (136-145)
[2024-12-03 12:18] LABS: Calcium 9.3 mg/dL (8.7-10.4)
[2024-12-03 12:23] LABS: BUN/Creatinine Ratio 20.5 (10.0-20.0); Blood Urea Nitrogen 15 mg/dL (9-23); Glucose 100 mg/dL (74-106)
[2024-12-03] MEDS ORDERED: TRAN650T5 PO (14:12)
[2024-12-03 14:27] VITALS: BP 137/88; PULSE 88; RESP 18; TEMP 98; O2SAT 100
== END 2024-12-03 14:27 | disposition home or self-care (01) ==
LOC: ER 10:29
DX: N92.0 Excessive and frequent menstruation with regular cycle (principal); Z79.899 Other long term (current) drug therapy; Z98.51 Tubal ligation status
CPT/HCPCS: 36415; 80048; 81001; 81025; 85025

== ENCOUNTER 2025-01-19 17:38 | Emergency (ER) | payer BC, MEDICAID ==
[~2025-01-19] VITALS: Ht 165.1 cm; Wt 62.0 kg
[~2025-01-19 17:38] MED LIST changes: +TRAN650T5 PO
[2025-01-19] MEDS: ONDANSETRON HCL 4 MG/2 ML VIAL IV ONE (19:00)
[2025-01-19] MEDS: PANTOPRAZOLE 40 MG/10 ML VIAL INJ IV ONE (19:00)
[2025-01-19] MEDS: SODIUM CHLORIDE 0.9% 1,000 ML IVB ONE (19:00)
[2025-01-19 19:01] LABS: Hematocrit 37.0 % (36.0-46.0); Hemoglobin 12.3 g/dL (12.2-16.2); Mean Corpuscular Hemoglobin 28.7 pg (28.0-32.0); Mean Corpuscular Volume 85.9 fL (80.0-100.0); Nucleated Red Blood Cells % 0.1 %
[2025-01-19] MEDS: MORPHINE SULFATE 4 MG/ML SYR/VIAL IV ONE (19:01)
--- NOTE | 2025-01-19 19:01 | ED.PDOC ---
GI ASSESSMENT HPI Comments This is a 29-year-old female who comes in with chief complaint of right upper quadrant pain. The patient states that she was cleaning the house at approximately 12:00 p.m. at home and then approximately 4 hours later she started with some right upper quadrant pain. The patient is also having some nausea but no vomiting. The patient states that the pain is an 8/10. The pain seems to radiate towards the back. 911 was called and the paramedics tr ansported her to our facility. She did receive Zofran 4 mg IV push EN route. The patient denies any vomiting. Upon arrival, she states that the pain has decreased significantly but she is still having a significant amount of nausea. She did have some diarrhea yesterday as well as today. She denies any history of this in the past. Chief Complaint: Abdominal Pain Time Seen by MD: 18:10 Primary Care Provider: PCP: ARTURO / OB: KIMBERLY Reviewed Notes: Nurses Notes, Cardroom Attendant Notes, Medications, Allergies (No allergies to medication) Allergies: Coded Allergies: NO KNOWN ALLERGIES (Unverified , 07/30/23) Home Meds Active Scripts Ondansetron Odt 4MG Tab (ZOFRAN PO) 4 Mg Tb, 4 MG PO Q8HP PRN for 5 Days, #15 TAB ODT TAB-DISSOLVE IN MOUTH, THEN SWALLOW Prov:UTE BONE MD 01/19/25 Pantoprazole Sodium Sesquihydr (Protonix) 40 Mg Tab, 40 MG PO DAILY, #30 TAB Prov:UTE BONE MD 01/19/25 Tranexamic Acid (TRANEXAMIC ACID) 650 Mg Tab, 650 MG PO TID for 5 Days, #15 TAB Prov:BETTY SCHAFFER MD 12/03/24 Cephalexin Monohydrate (Cephalexin) 500 Mg Cap, 1 CAP PO QID for 10 Days, #40 CAP Prov:MIRIAM ROSAS 08/13/24 Reported Medications Labetalol Hcl (Labetalol Hcl) 200 Mg Tab, 1 TAB PO BID, #60 TAB 5 Refills 07/28/24 Information Source: Patient, Emergency Med Personnel Mode of Arrival: EMS Timing: Hours Duration: Since onset Prehospital treatment: Hand Leather Trimmer, IVF, Other (Zofran for nausea) Quality: Sharp Vomitus: None Stool: Watery Severity: Moderate Recent: Other, None Recent Hx of: None Pain Location: RUQ Modifying Factors: Nothing Associated sign and symptoms: Nausea, Abdominal Pain Past Medical History PAST MEDICAL HISTORY: Thyroid Surgical History: , Tubal Ligation SENIOR PLANNER History: No Pertinent SENIOR PLANNER History Family History Family History: Family hx of DM, Family hx of Cancer, Family hx of heart marek Social History Smoker: Non-Smoker Alcohol: Occasionally Drugs: Denies Drug Use Lives In: Home Constitutional: denies: chills, diaphoresis, fatigue, fever, malaise, sweats, weakness, others EENTM: denies: blurred vision, double vision, ear bleeding, ear discharge, ear drainage, ear pain, ear ringing, eye pain, eye redness, hearing loss, mouth pain, mouth swelling, nasal discharge, nose bleeding, nose congestion, nose pain, photophobia, tearing, throat pain, throat swelling, voice changes, others Respiratory: denies: cough, hemoptysis, orthopnea, SOB at rest, shortness of breath, SOB with excertion, stridor, wheezing, others Cardiovascular: denies: chest pain, dizzy spells, diaphoresis, Dyspnea on exertion, edema, irregular heart beat, left arm pain, lightheadedness, palpitations, PND, syncope, others Gastrointestinal: reports: abdominal pain, diarrhea, nausea; denies: abdomen distended, blood streaked bowels, constipated, dysphagia, difficulty swallowing, hematemesis, melena, poor appetite, poor fluid intake, rectal bleeding, rectal pain, vomiting, others Genitourinary: denies: abnormal vagina bleeding, burning, dyspareunia, dysuria, flank pain, frequency, hematuria, incontinence, pain, , vagina discharge, urgency, others Neurological: denies: dizziness, fainting, headache, left sided numbness, left sided weakness, numbness, paresthesia, pre-existing deficit, right sided numbness, right sided weakness, seizure, speech problems, tingling, tremors, weakness, others Musculoskeletal: denies: back pain, gout, joint pain, joint swelling, muscle pain, muscle stiffness, neck pain, others Integumetry: denies: bruises, change in color, change in hair/nails, dryness, laceration, lesions, lumps, rash, wounds, others Allergic/Immunocompromised: denies: Difficulty Healing, Frequent Infections, Hives, Itching, others Hematologic/Lymphatic: denies: anemia, blood clots, easy bleeding, easy bruising, swollen glands, others Endocrine: denies: excessive hunger, excessive sweating, excessive thirst, excessive urination, flushing, intolerance to cold, intolerance to heat, unexplained weight gain, unexplained weight loss, others Psychiatric: denies: anxiety, bipolar disorder, depression, hopeless, panic disorder, schizophrenia, sleepless, suicidal, others Physical Exam General Appearance: Mild Distress HEENT: Normal ENT Inspection, Pharynx Normal, TMs Normal Neck: Full Range of Motion, Non-Tender, Normal, Normal Inspection Respiratory: Chest Non-Tender, Lungs Clear, No Accessory Muscle Use, No Respiratory Distress, Normal Breath Sounds Cardiovascular: No Edema, No JVD, No Murmur, No Gallop, Normal Peripheral Pulses, Regular Rate/Rhythm Breast Exam: Deferred Gastrointestinal: No Organomegaly, No Pulsatile Mass, Normal Bowel Sounds, RUQ, Soft Genitalia: Deferred Pelvic: Deferred Rectal: Deferred Extremities: No calf tenderness, Normal capillary refill, Normal inspection, Normal range of motion, Non-tender, No pedal edema Musculoskeletal : Apperance: Normal Neurologic: Alert, repair weaver II-XII nml as Tested, No Motor Deficits, Normal Affect, Normal Mood, No Sensory Deficits Cerebellar Function: Normal Reflexes: Normal Skin: Dry, Normal Color, Warm Lymphatic: No Adenopathy Was a procedure done? Was a procedure done?: No GI differential Dx Differential Diagnosis: Cholangitis, Cholecystitis, Gastritis/PUD, Gastroenteritis, Hepatitis, Pancreatitis, PID, Electrolyte Imbalance, Food Poisoning X-Ray, Labs, Meds, VS Vital Signs Date Time Temp Pulse Resp B/P (MAP) Pulse Ox O2 Delivery O2 Flow Rate FiO2 01/19/25 19:03 Room Air* 0 21 01/19/25 19:02 98.2 82 18 132/75 (94) 100 98.2 01/19/25 19:01 81 17 132/75 01/19/25 17:45 98.6 98 20 144/95 96 98.6 Lab Test 01/19/25 19:46 01/19/25 18:54 Range/Units Urine Color Yellow Yellow Urine Clarity Clear Clear Urine pH 6.0 5.0-9.0 Urine Specific [place] 1.040 H 1.001-1.035 Urine Protein Negative Negative Urine Ketones 1+ H Negative Urine Blood Negative Negative /uL Urine Nitrite Negative Negative Urine Bilirubin Negative Negative Urine Urobilinogen Normal Negative mg/dL Urine Leukocyte Esterase Negative Negative /uL Urine RBC 2 0 - 4 /hpf Urine Microscopic WBC 4 0-5 /HPF Urine Squamous Epithelial Cells Few <5 /hpf Urine Bacteria None seen None Seen /hpf Urine Mucus Few None Seen Urine Glucose Normal Normal mg/dL White Blood Count 8.0 4.4-10.8 10^3/uL Red Blood Count 4.30 4.0-5.20 10^6/uL Hemoglobin 12.3 12.2-16.2 g/dL Hematocrit 37.0 36.0-46.0 % Mean Corpuscular Volume 85.9 80.0-100.0 fL Mean Corpuscular Hemoglobin 28.7 28.0-32.0 pg Mean Corpuscular Hemoglobin Concent 33.3 32.0-36.0 g/dL Red Cell Distribution Width 14.0 11.8-14.3 % Platelet Count 316 140-450 10^3/uL Mean Platelet Volume 7.1 6.9-10.8 fL Neutrophils (%) (Auto) 66.0 37.0-80.0 % Lymphocytes (%) (Auto) 24.7 10.0-50.0 % Monocytes (%) (Auto) 7.7 0.0-12.0 % Eosinophils (%) (Auto) 1.1 0.0-7.0 % Basophils (%) (Auto) 0.5 0.0-2.0 % Neutrophils # (Auto) 5.3 1.6-8.6 10 ^3/uL Lymphocytes # (Auto) 2.0 0.4-5.4 10 ^3/uL Monocytes # (Auto) 0.6 0-1.3 10 ^3/uL Eosinophils # (Auto) 0.1 0-0.8 10 ^3/uL Basophils # (Auto) 0 0-0.2 10 ^3/uL Nucleated Red Blood Cells 0.1 % Sodium Level 138 136-145 mmol/L Potassium Level 3.6 3.5-5.1 mmol/L Chloride Level 105 98-107 mmol/L Carbon Dioxide Level 23 20-31 mmol/L Anion Gap 10 5-15 Blood Urea Nitrogen 11 9-23 mg/dL Creatinine 0.56 0.550-1.02 mg/dL Glomerular Filtration Rate Calc 127 >90 mL/min BUN/Creatinine Ratio 19.6 10.0-20.0 Serum Glucose 85 74-106 mg/dL Calcium Level 8.4 L 8.7-10.4 mg/dL Total Bilirubin 0.5 0.2-1.0 mg/dL Aspartate Amino Transferase (AST) 15 13-40 U/L Alanine Aminotransferase (ALT) 16 7-40 U/L Alkaline Phosphatase 89 46-116 U/L Total Protein 6.3 5.7-8.2 g/dL Albumin 4.1 3.2-4.8 g/dL Lipase 18 12-53 U/L Beta HCG, Quantitative 0.7 L 1.5-4.2 mIU/mL Current Medications Medications (Trade) Dose Ordered Sig/Debbie Route Start Time Stop Time Status Last Admin Ondansetron HCl (Zofran) 4 mg ONCE ONCE IV 01/19/25 18:45 01/19/25 18:46 DC 01/19/25 19:00 Sodium Chloride 1,000 ml @ 1,000 mls/hr Q1H ONCE IVB 01/19/25 18:45 01/19/25 19:44 DC 01/19/25 19:00 Morphine Sulfate 4 mg ONCE ONCE IV 01/19/25 18:45 01/19/25 18:46 DC 01/19/25 19:01 Pantoprazole Sodium (Protonix) 40 mg ONCE ONCE IV 01/19/25 18:45 01/19/25 18:46 DC 01/19/25 19:00 IV Hep-Lock was established The patient is being given morphine 4 mg IV push The patient is given Zofran 4 mg IV push The patient is given Protonix 40 mg IV push The ultrasound of the abdomen was negative. The patient states that she is feeling much better The test is negative The urine test is negative for any infection The CBC and chemistry panel are within normal limits The patient is being discharged at this time Images Reviewed?: Images reviewed and evaluated by me Time of 1ST Reevaluation: 19:01 Reevaluation 1ST: Unchanged Patient Education/Counseling: Diagnosis, Treatment, Prognosis, Need For Follow Up Family Education/Counseling: Diagnosis, Treatment, Prognosis, Need For Follow Up SEPSIS Sepsis Screen Date sepsis recognized/suspect: Jan 19, 2025 Time Sepsis recognized/suspect: 1748 Recent Procedure: No On Antibiotic Therapy: No Respiratory Rate >20: No Heart Rate >90: No Temp<36 C (96.8 F) or >38.3 C: No SBP <90 or MAP <65 mmHG: No New Acute Mental Status Change: No Is the patient on CPAP, BIPAP,: No Physician Orders Heplock Iv (01/19/25 18:41) Gallbladder (01/19/25 18:41) Vital Signs Date Time Temp Pulse Resp B/P (MAP) Pulse Ox O2 Delivery O2 Flow Rate FiO2 01/19/25 19:03 Room Air* 0 21 01/19/25 19:02 98.2 82 18 132/75 (94) 100 98.2 01/19/25 19:01 81 17 132/75 01/19/25 17:45 98.6 98 20 144/95 96 98.6 Laboratory Tests Test 01/19/25 18:54 White Blood Count 8.0 10^3/uL (4.4-10.8) Medications Medications Dose Ordered Sig/Debbie Route Start Time Stop Time Status Last Admin Dose Admin Morphine Sulfate 4 mg ONCE ONCE IV 01/19/25 18:45 01/19/25 18:46 DC 01/19/25 19:01 Ondansetron HCl 4 mg ONCE ONCE IV 01/19/25 18:45 01/19/25 18:46 DC 01/19/25 19:00 Pantoprazole Sodium 40 mg ONCE ONCE IV 01/19/25 18:45 01/19/25 18:46 DC 01/19/25 19:00 Sodium Chloride 1,000 ml @ 1,000 mls/hr Q1H ONCE IVB 01/19/25 18:45 01/19/25 19:44 DC 01/19/25 19:00 Departure 1 Departure Time of Disposition: 20:37 Impression: Primary Impression: Abdominal pain of unknown etiology Disposition: 01 HOME / SELF CARE / HOMELESS Condition: Fair e-Prescriptions Ondansetron Odt 4MG Tab (ZOFRAN PO) 4 Mg Tb 4 MG PO Q8HP PRN for 5 Days, #15 TAB ODT TAB-DISSOLVE IN MOUTH, THEN SWALLOW Prov: UTE BONE MD 01/19/25 Pantoprazole Sodium Sesquihydr (Protonix) 40 Mg Tab 40 MG PO DAILY, #30 TAB Prov: UTE BONE MD 01/19/25 Discharged With: Self, Significant Other Critical Care Note Critical Care Time?: No Stability Stability form required: No Heart Score Heart Score: Heart Score Response (Comments) Value History N/A 0 EKG N/A 0 Age N/A 0 Risk Factors N/A 0 Troponin N/A 0 Total 0 UTE BONE MD Jan 19, 2025 19:01
[2025-01-19 19:02] VITALS: BP 132/75; PULSE 82; RESP 18; TEMP 98.2; O2SAT 100
[2025-01-19 19:16] LABS: Alanine Aminotransferase 16 U/L (7-40); Albumin 4.1 g/dL (3.2-4.8); Alkaline Phosphatase 89 U/L (46-116); Anion Gap 10 (5-15); BUN/Creatinine Ratio 19.6 (10.0-20.0); Bilirubin, Total 0.5 mg/dL (0.2-1.0); Blood Urea Nitrogen 11 mg/dL (9-23); Calcium 8.4 mg/dL (8.7-10.4); Carbon Dioxide 23 mmol/L (20-31); Chloride 105 mmol/L (98-107); Glucose 85 mg/dL (74-106); Lipase 18 U/L (12-53); Potassium 3.6 mmol/L (3.5-5.1); Sodium 138 mmol/L (136-145); Total Protein 6.3 g/dL (5.7-8.2)
--- NOTE | 2025-01-19 19:54 | DVH ---
INDICATION: pain TECHNIQUE: Multiple real-time sonographic images were obtained of the right upper quadrant. COMPARISON: None FINDINGS: The liver demonstrates homogeneous echotexture without focal mass lesions. The liver measures 15.6 cm. There is no intrahepatic or extrahepatic ductal dilatation. The common duct measures 0.4 cm. The gallbladder is without evidence of stone or sludge. The gallbladder wall measures 0.2 cm and is within normal limits. The right kidney measures 10.4 cm. The right kidney is normal in contour, size, and shape. The echogenicity is normal. There is no hydronephrosis. The pancreas is not well visualized due to overlying bowel gas. IMPRESSION: Unremarkable right upper quadrant sonogram.
[2025-01-19 20:11] LABS: Urine Protein, UAD Negative (Negative)
[2025-01-19] MEDS ORDERED: PANT40TA2 PO (20:38)
[2025-01-19] MEDS ORDERED: ZOFR4T PO (20:38)
== END 2025-01-19 21:11 | disposition home or self-care (01) ==
LOC: ER 17:38 → EDBD 17:38 → ER 21:00
DX: R10.11 Right upper quadrant pain (principal); F10.90 Alcohol use, unspecified, uncomplicated; Z79.899 Other long term (current) drug therapy; Z98.890 Other specified postprocedural states; Z98.51 Tubal ligation status
CPT/HCPCS: 36415; 76705; 80053; 81001; 82947; 83690; 84702; 85025; 96361; 96374; 96375; 99285; J2270; J2405; J2470; J7030